=== PATIENT | female | born 1940 | race Caucasian/White ===

== ENCOUNTER 2017-01-23 12:25 | Emergency (ER) | payer OTHER ==
[~2017-01-23] VITALS: Ht 160 cm; Wt 67.1 kg
[~2017-01-23 12:25] MED LIST: AMLODIPINE; APAP500 PO; APAP650 PO; ATIVAN1 MG PO; CARAFATE 1 GM TA1 G1 PO; CENTRUM TABLET1 TAB PO; ENOXAPARIN40 MG/0.1 SUBQ; FLOMAX0.4 MG PO; HYDROCHLOROTHIA25 M1 PO; HYDROCODON-ACE1 EACH PO; HYDROCODONE-APA1 TA1 PO; LIDOCAINE VISC100 M1 PO; MAG-AL PLUS SUS30 ML PO; MOBIC15 MG PO; NORVASC5 MG PO; OMEPRAZOLE20 M2 PO; ONDANSETRON HCL4 M2 PO; PEG 3350 ELEC4000 ML PO; PERCOCET 10-321 EACH PO; SENNA8.6 MG PO; ULTRAM 50MG TAB50 MG PO; VICODIN 5-5001 EACH PO; VITAMIN D 5050000 I1 PO; VOL-NATE TABLE1 EACH PO; VOLTAREN GEL 1100 G1 TOP; ZOCOR; ZOCOR 10 MG TAB10 M1 PO
[2017-01-23] MEDS ORDERED: HYDROCHLOROTH12.5 M1 PO (12:55)
[2017-01-23] MEDS ORDERED: MOBIC15 MG PO (12:56)
[2017-01-23] MEDS ORDERED: DONEPEZIL HCL 55 M1 PO (12:56)
[2017-01-23] MEDS ORDERED: NORVASC5 MG PO (12:56)
[2017-01-23] MEDS ORDERED: OMEPRAZOLE 20 M20 M1 PO (12:56)
[2017-01-23] MEDS ORDERED: CRESTOR10 MG PO (12:57)
[2017-01-23] MEDS ORDERED: VITAMIN D50000 UNIT PO (12:57)
[2017-01-23] MEDS ORDERED: PREDNISONE 20 M20 MG PO (14:32)
[2017-01-23] MEDS ORDERED: NORCO 5-325 TA1 EACH PO (14:38)
[2017-01-23 15:13] VITALS: BP 155/65
== END 2017-01-23 15:13 | disposition home or self-care (01) ==
LOC: ER 12:25
DX: M54.41 Lumbago with sciatica, right side (principal); E78.00 Pure hypercholesterolemia, unspecified; I10 Essential (primary) hypertension; F17.210 Nicotine dependence, cigarettes, uncomplicated; F10.99 Alcohol use, unspecified with unspecified alcohol-induced disorder; Z88.1 Allergy status to other antibiotic agents; Z88.6 Allergy status to analgesic agent; Z88.2 Allergy status to sulfonamides

== ENCOUNTER → 2017-02-21 | Outpatient (CLI) | payer OTHER ==
[~2017-02-21] VITALS: Ht 160 cm; Wt 69.4 kg
[~2017-02-21] MED LIST changes: +CRESTOR10 MG PO; +DONEPEZIL HCL 55 M1 PO; +HYDROCHLOROTH12.5 M1 PO; +NORCO 5-325 TA1 EACH PO; +OMEPRAZOLE 20 M20 M1 PO; +PREDNISONE 20 M20 MG PO; +VITAMIN D50000 UNIT PO
--- NOTE | ~2017-02-21 | HPC ---
[facility] [place] [address] PAIN MANAGEMENT CONSULTATION Name: PAOLASURENDRARG LAND NAZ Room #: REG [facility] Hernan.#: [id number] Admission: 02/21/17 Attend Phys: Antwan Duenas DO Discharge: Date of : 38 Report #: [id number] THIS REPORT FOR: //name// CC: Yobani Duenas The patient is a very pleasant 76-year-old female, seen some 6 years ago in 2011 for a lumbar radiculopathy. The patient was somewhat lost to follow up. She presents to the pain clinic today in consultation at the request of Dr. Hoffman for evaluation of pain, low back, right hip, posterior right leg down to the foot with some paresthesia in the left kaminski as well. The patient had a hip fracture (right) in October of 2015, treated with ORIF. She did walk with a walker for a greater time and then a cane, progressed to steady ambulation. She notes, however, starting in December, she has had some recurrence of pain starting this past December, she has had recurrence of pain in the low back, right lateral leg down to the foot. She describes constant, shooting, cramping, sharp pain, which she rates 9 on a VAS. She states the pain is exacerbated with walking, standing and lying, and "nothing" makes it better. REVIEW OF SYSTEMS: Complete review of systems attached to chart and gone over with the patient. She is . History of hypertension, treated with hydrochlorothiazide and amlodipine. Gastroesophageal reflux for which she takes omeprazole. She does have some early cognitive impairment, does take Donepezil. Dyslipidemia for which she takes rosuvastatin. She has been taking Meloxicam recently. SURGICAL HISTORY: Includes the aforementioned right hip ORIF in October 2015. Carpal tunnel surgeries, vesicocele and rectocele repair in July 2015. She is retired. Pain impact score is fairly high, averaging about 54/70. PHYSICAL EXAMINATION: GENERAL: Reveals a 5 feet 3, 153 pounds female, BMI is 27.1 kilograms per meter squared. VITAL SIGNS: Blood pressure is 150/66, pulse 68, and respirations 16. NEUROLOGIC: Cranial nerves 2-12 are grossly intact. HEENT: Pupils are equal, reactive to light and accommodation. Extraocular muscles are intact. She is generally alert and oriented. NECK: Thyroid is unremarkable. Cervical range of motion is full. MUSCULOSKELETAL: Upper extremity strength is generally preserved. HEART: Regular rhythmical at this time. I detect no murmurs. LUNGS: Clear. ABDOMEN: Shows a modestly endomorphic build. Rises from chair using armrest, does have a markedly antalgic gait. Right hip flexion strength is significantly limited about 2-3/5, as is lower extremity extension strength, left leg is stronger at about 4/5 to objective testing. Patellar reflex is diminished on [address] [address] PAIN MANAGEMENT CONSULTATION Name: GOVIND FITZGERALDPETER CHILDS Room #: REG RENAE Lopez#: [id number] Admission: 02/21/17 Attend Phys: Antwan Duenas DO Discharge: Date of : 38 Report #: [id number] the right, 0-1/4 and 1-2/4 on the left. Achilles reflexes are symmetric. Grossly positive straight leg raise on the right at about 30 degrees. DIAGNOSTIC STUDIES: A CT myelogram from 01/23/2017 notes L4-L5 to facet degenerative changes, left greater than right, DJD both hips is noted, status post ORIF right femur. ASSESSMENT: 1. Symptomatic lumbar radiculopathy. 2. Spinal stenosis. RECOMMENDATIONS: 1. Epidural injection under fluoroscopy today, L4-L5. 2. Follow up in 2 weeks for reevaluation. We will consider PT referral at that time to help with loss of strength. May consider repeat injection if indicated clinically. Thank you for allowing me to participate in this patient's care. I will keep you abreast of her progress. PROCEDURE: Lumbar epidural injection under fluoroscopy. PROCEDURE NOTE: After both written and informed consent to include risk of spinal cord damage, increased pain, weakness and dural puncture, the patient was taken to the fluoroscopy suite, placed in the prone position. After sterile prep and drape, a skin wheal with lidocaine was raised. A 22-gauge epidural Tuohy needle was inserted in the midline at L5-S1 with good loss to resistance. Negative aspiration for cerebrospinal fluid or blood was noted. Then 1 mL of Omnipaque under biplanar fluoroscopy showed good spread within the epidural space. This was followed with 80 mg of triamcinolone plus 1 mL of 1.5% preservative-free Xylocaine, 0.5 mL Xylocaine was then injected to flush the needle; it was removed. The patient was monitored for an appropriate period of time and discharged in good and stable condition. <ELECTRONICALLY SIGNED> By: Antwan Duenas DO 02/25/17 0840 [id number] [id number] Antwan Duenas DO /nt
[2017-02-21 09:01] VITALS: BP 150/66
== END | disposition home or self-care (01) ==
LOC: PAIN 06:27
DX: M54.16 Radiculopathy, lumbar region (principal); M48.06 Spinal stenosis, lumbar region; F17.200 Nicotine dependence, unspecified, uncomplicated

== ENCOUNTER → 2017-03-07 | Outpatient (CLI) | payer OTHER ==
[~2017-03-07] VITALS: Ht 160 cm; Wt 69.9 kg
--- NOTE | ~2017-03-07 | HPC ---
[facility] [place] [address] PAIN MANAGEMENT CONSULTATION Name: RG FITZGERALD Room #: REG RENAE Hernan.#: [id number] Admission: 03/07/17 Attend Phys: Antwan Duenas DO Discharge: Date of : 38 Report #: [id number] THIS REPORT FOR: //name// CC: Yobani Duenas HISTORY OF PRESENT ILLNESS: The patient a very pleasant 76-year-old female, she was last seen in the pain clinic on 02/21/2017. She was seen in consultation at that time, had been prior seen back in 2011. The patient was treated for symptomatic lumbar radiculopathy, component of spinal stenosis. I did an epidural injection at L5-S1. The patient returns to pain clinic today noting dramatic improvement of baseline pain, in fact notes her pain is 1 or 2 on a VAS, occasionally up to 2 with activity. Pain is primarily right lateral calf, although the back, buttock, and leg pain is essentially gone. PHYSICAL EXAMINATION: Shows a 76-year-old female. BMI is 27.3 kilograms per meter squared. Vital signs stable as noted in the EMR. Rises from chair easily. Gait is tandem. Lower extremity strength is preserved. Straight leg raise is negative. Again, some subjective pain in the lateral aspect of the right leg, though no discrete pathology is discernible here. ASSESSMENT: Symptomatic lumbar radiculopathy secondary to spinal stenosis with dramatic improvement following single epidural injection. RECOMMENDATION: No further interventional therapy required at this point. I will be happy to repeat an epidural injection as indicated for radicular pain. Currently, the patient is taking meloxicam 15 mg 1 a day, this is reasonable. We did briefly talk about cardiac risk and daily anti-inflammatory medication use suggesting perhaps she use this on a more nondaily basis, i.e., only if she has significant pain or activity is planned that may increase pain (going to the grocery store or to family events for prolonged period of time). Presently, however, really no interventional therapy is required and I will be happy to see her on an as needed basis. Discharged in good and stable condition after approximately 15 minutes was spent reviewing the patient's anatomy and physical exam, discussing her care with her daughter. <ELECTRONICALLY SIGNED> By: Antwan Duenas DO 03/08/17 0949 1452 1932 Antwan Duenas DO /nt
[2017-03-07 13:28] VITALS: BP 131/64
== END | disposition home or self-care (01) ==
LOC: PAIN 07:09
DX: M48.061 Spinal stenosis, lumbar region without neurogenic claudication (principal); F17.200 Nicotine dependence, unspecified, uncomplicated; Z98.890 Other specified postprocedural states; Z88.0 Allergy status to penicillin; Z88.2 Allergy status to sulfonamides; Z88.6 Allergy status to analgesic agent; Z79.899 Other long term (current) drug therapy

== ENCOUNTER → 2017-10-17 | Outpatient (CLI) | payer OTHER ==
[~2017-10-17] VITALS: Ht 160 cm; Wt 69.4 kg
[~2017-10-17] MED LIST changes: +OXYBUTYNIN 5 MG5 M1 PO
[2017-10-17 13:32] VITALS: BP 137/70
== END ==
LOC: SEN 09:23
DX: M25.561 Pain in right knee (principal); M54.5 Low back pain; M48.061 Spinal stenosis, lumbar region without neurogenic claudication; F03.90 Unspecified dementia, unspecified severity, without behavioral disturbance, psychotic disturbance, mood disturbance, and anxiety; K21.9 Gastro-esophageal reflux disease without esophagitis; H91.92 Unspecified hearing loss, left ear; I10 Essential (primary) hypertension

== ENCOUNTER 2017-11-06 19:39 | Emergency (ER) | payer OTHER ==
[~2017-11-06] VITALS: Ht 160 cm; Wt 70.3 kg
[2017-11-06] MEDS ORDERED: MAGIC MOUTHWASH SWISH&SPIT (20:44)
[2017-11-06 21:00] VITALS: BP 149/64
== END 2017-11-06 21:01 | disposition home or self-care (01) ==
LOC: ER 19:39
DX: B37.9 Candidiasis, unspecified (principal); I10 Essential (primary) hypertension; E78.00 Pure hypercholesterolemia, unspecified; F17.210 Nicotine dependence, cigarettes, uncomplicated; Z88.1 Allergy status to other antibiotic agents; Z88.2 Allergy status to sulfonamides

== ENCOUNTER 2017-11-09 09:31 | Emergency (ER) | payer OTHER ==
[~2017-11-09] VITALS: Ht 160 cm; Wt 70.3 kg
[~2017-11-09 09:31] MED LIST changes: +MAGIC MOUTHWASH SWISH&SPIT
[2017-11-09] MEDS ORDERED: HYDROCODONE-AP1 EAC6 PO (12:16)
[2017-11-09 12:37] VITALS: BP 130/59
== END 2017-11-09 12:39 | disposition home or self-care (01) ==
LOC: ER 09:31
DX: S80.02XA Contusion of left knee, initial encounter (principal); S80.01XA Contusion of right knee, initial encounter; S20.211A Contusion of right front wall of thorax, initial encounter; W10.9XXA Fall (on) (from) unspecified stairs and steps, initial encounter; Y93.89 Activity, other specified; Y92.89 Other specified places as the place of occurrence of the external cause; Y99.8 Other external cause status; E78.00 Pure hypercholesterolemia, unspecified; I10 Essential (primary) hypertension; F17.210 Nicotine dependence, cigarettes, uncomplicated; Z88.1 Allergy status to other antibiotic agents; Z88.2 Allergy status to sulfonamides

== ENCOUNTER → 2017-11-14 | Outpatient (CLI) | payer OTHER ==
[~2017-11-14] MED LIST changes: +HYDROCODONE-AP1 EAC6 PO; +REQUIP 0.25 M0.25 M1
[2017-11-14 15:30] VITALS: BP 116/73
[2017-11-14 16:26] LABS: ABSOLUTE NEUTROPHILS 5.7 thou/uL (1.4-8.2); BASOPHILS 0.7 % (0.0-2.0); HEMATOCRIT 39.3 % (37.0-47.0); HEMOGLOBIN 13.4 gm/dL (12.0-15.0); LYMPHOCYTES 18.4 % (24.0-44.0); MCH 31.7 pg (26.0-34.0); MCV 93.3 fL (80.0-100.0); MONOCYTES 7.5 % (1.0-8.0); PLATELET COUNT 209 thou/uL (150-400); POLYS 72.4 % (36.0-66.0); RBC 4.22 mil/uL (4.20-5.00); RDW 13.5 % (10.5-14.5); WBC 7.9 thou/uL (4.0-11.0)
[2017-11-14 16:27] LABS: URINE BILIRUBIN NEGATIVE (Negative); URINE BLOOD NEGATIVE (Negative); URINE CLARITY CLEAR; URINE COLOR YELLOW; URINE GLUCOSE-RANDOM* NEGATIVE (Negative); URINE KETONES NEGATIVE (Negative); URINE LEUKOCYTES-REFLEX NEGATIVE (Negative); URINE NITRITE-REFLEX NEGATIVE (Negative); URINE PROTEIN (DIPSTICK) NEGATIVE (Negative); URINE UROBILINOGEN 0.2 E.U./dl (0.2-1.0)
[2017-11-14 16:33] LABS: CREATININE 0.9 mg/dL (0.6-1.0)
[2017-11-14 17:04] LABS: FOLIC ACID 14.3 ng/mL (8.6-58.9)
== END ==
LOC: SEN 08:48
PROVIDERS: Nurse Practitioner Family
DX: G25.81 Restless legs syndrome (principal); R41.3 Other amnesia

== ENCOUNTER 2017-11-17 12:28 | Emergency (ER) | payer OTHER ==
[~2017-11-17] VITALS: Ht 160 cm; Wt 69.8 kg
[2017-11-17 12:39] VITALS: BP 139/62
[2017-11-17] MEDS ORDERED: SENNA-DOCUSATE1 EACH PO (13:56)
[2017-11-17] MEDS ORDERED: NORCO 5-325 TA1 EACH PO (13:56)
== END 2017-11-17 14:10 | disposition home or self-care (01) ==
LOC: ER 12:28
DX: S22.41XD Multiple fractures of ribs, right side, subsequent encounter for fracture with routine healing (principal); X58.XXXD Exposure to other specified factors, subsequent encounter; I10 Essential (primary) hypertension; E78.00 Pure hypercholesterolemia, unspecified; F17.210 Nicotine dependence, cigarettes, uncomplicated; Z88.1 Allergy status to other antibiotic agents; Z88.2 Allergy status to sulfonamides

== ENCOUNTER → 2018-01-16 | Outpatient (CLI) | payer OTHER ==
[~2018-01-16] VITALS: Ht 160 cm; Wt 69.4 kg
[~2018-01-16] MED LIST changes: +SENNA-DOCUSATE1 EACH PO
[2018-01-16 13:30] VITALS: BP 127/59
[2018-01-16 15:27] LABS: CREATININE 0.9 mg/dL (0.6-1.0); POTASSIUM 3.7 mmol/L (3.5-5.1)
== END ==
LOC: SEN 09:02
PROVIDERS: Emergency Medicine
DX: Z13.21 Encounter for screening for nutritional disorder (principal); E55.9 Vitamin D deficiency, unspecified; E11.9 Type 2 diabetes mellitus without complications; R07.89 Other chest pain; I10 Essential (primary) hypertension; E78.00 Pure hypercholesterolemia, unspecified; E78.5 Hyperlipidemia, unspecified; M19.90 Unspecified osteoarthritis, unspecified site; Z79.899 Other long term (current) drug therapy

== ENCOUNTER → 2018-03-11 | Outpatient (CLI) | payer OTHER ==
[~2018-03-11] VITALS: Ht 160 cm; Wt 68.3 kg
--- NOTE | ~2018-03-11 | HPC ---
[facility] [address] [place] [address] PAIN MANAGEMENT CONSULTATION Name: RG FITZGERALD [facility] [id number] Admission: 03/11/18 Attend Phys: Severo Duenas DO Discharge: Date of : 38 Report #: [id number] THIS REPORT FOR: //name// CC: Yobani Raim Akkulugari DATE OF SERVICE: 03/11/2018 CHIEF COMPLAINT: Low back pain, bilateral lower extremity pain and paresthesias. HISTORY OF PRESENT ILLNESS: As you know, the patient is a 77-year-old female who complains of chronic low back pain, bilateral lower extremity pain with paresthesias. She describes the pain as aching and cramping, exacerbated with sitting, standing, walking, getting in and out of bed, alleviated with repositioning, heat and cold compresses, medication management and epidural injections. The patient returns today in followup visit requesting to undergo epidural injection under fluoroscopic guidance. She reported good efficacy with the previous injection provided by my partner, Dr. Antwan Duenas, with reportedly 50% improvement in overall pain. She returns today in followup visit to undergo next in the series of epidural injections. The patient denies injury or trauma or any changes in medical history since our last visit. ALLERGIES: ERYTHROMYCIN, SULFA, AND NAPROXEN. CURRENT MEDICATIONS: Ropinirole, oxybutynin, cholecalciferol, lovastatin, omeprazole, benazepril, meloxicam, amlodipine and hydrochlorothiazide. SOCIAL HISTORY: The patient is a half pack a day smoker x 50 years. Denies alcohol, IV or illicit drug use. She is retired, unaccompanied today. IMAGING: No new imaging available. PQRS: The patient has osteoarthritis of the lower back, bilateral hips, no rheumatoid arthritis. She places current pain score 5/10. She is a fall risk, but has not had a fall in the last 3 months. She is not on blood thinners. She is treated for hypertension. She is not on a long-term opioid. She has a low opioid addiction potential. Her pain impact score indicates a [id number] 54/70. PHYSICAL EXAMINATION: VITAL SIGNS: Blood pressure 136/64, pulse 73, respiratory rate 16 and unlabored. The patient is 100% on room air. Height 5 feet 3 inch tall, weight 150.6 pounds, BMI calculated 26.7. [place] [address] PAIN MANAGEMENT CONSULTATION Name: RG FITZGERALD Room #: REG [facility]#: [id number] Admission: 03/11/18 Attend Phys: Severo Duenas DO Discharge: Date of : 38 Report #: [id number] GENERAL: Well-developed, well-nourished, well-hydrated 77-year-old female appearing stated age, placing current pain score 5/10. HEENT: Normocephalic, atraumatic. Pupils equal, round, reactive to light. EXTREMITIES: Show no clubbing, no cyanosis, no edema. MUSCULOSKELETAL: Seated straight leg raising negative. Supine straight leg raising positive. Dallas's test negative. Modified Gaenslen's positive for axial low back pain. Gait is extremely antalgic. Ankle clonus is negative. Babinski is negative. ASSESSMENT: 1. Symptomatic lumbar radiculopathy. 2. Spinal stenosis of the lumbar spine. 3. Displacement of lumbar intervertebral disk with radiculopathy. 4. Lumbosacral spondylosis with radiculopathy. 5. Lumbar degeneration. 6. Chronic intractable pain. PLAN: 1. The patient has returned today in followup visit requesting to undergo a lumbar epidural injection under fluoroscopic guidance. The patient reports greater than 50% improvement in overall pain with previous epidural injection. She returns today in followup visit, denying any new injury, new trauma or any changes in medical history since our last visit. She has requested this epidural injection in hopes of improving low back pain, bilateral lower extremity pain. The patient has been advised risks and benefits, states understood and wished to proceed. 2. No medication changes made at today's visit. The patient will continue current medical therapy as previously prescribed. 3. We will see the patient back in followup visit on an as needed basis for possible next in the series of epidural injections. PROCEDURE NOTE: DESCRIPTION OF PROCEDURE: L5-S1 interlaminar epidural steroid injection under fluoroscopic guidance. After obtaining written consent, the patient was taken back to fluoroscopy suite, placed in prone position with pillow under abdomen to decrease lumbar lordosis. Skin overlying lumbosacral area then prepped and draped in aseptic fashion. Lumbar intervertebral spaces were identified by AP fluoroscopy. Skin and subcutaneous tissue overlying target site of injection anesthetized with 3 mL of 1% lidocaine. A 20-gauge 3-1/2 inch Tuohy needle advanced under fluoroscopic guidance towards the epidural space using a midline approach. Epidural space identified using loss of resistance to air technique. After negative aspiration for heme or [facility] [address] [place] [address] PAIN MANAGEMENT CONSULTATION Name: RG FITZGERALD Room #: REG RENAE Lopez#: [id number] Admission: 03/11/18 Attend Phys: Severo Duenas DO Discharge: Date of : 38 Report #: [id number] cerebrospinal fluid, 1 mL of Omnipaque injected. A lumbar epidurogram confirmed using both AP and lateral fluoroscopy. After negative aspiration for heme or cerebrospinal fluid, 5 mL of a solution containing 2 mL 40 mg per mL, 80 mg total triamcinolone, 3 mL lidocaine 1% injected slowly. Needle retracted snf, flushed with 1 mL of 1% lidocaine and removed. Sterile bandage placed over injection site. No new motor deficits present in lower extremity following procedure. The patient tolerated procedure well, carefully escorted to recovery room in stable condition. No apparent complications. After meeting discharge criteria, the patient discharged home. <ELECTRONICALLY SIGNED> By: Severo Duenas DO 03/12/18 1059 1415 [id number] Severo Duenas DO /nt
[2018-03-11 09:56] VITALS: BP 136/64
== END | disposition home or self-care (01) ==
LOC: PAIN 06:53
DX: M51.16 Intervertebral disc disorders with radiculopathy, lumbar region (principal); M48.061 Spinal stenosis, lumbar region without neurogenic claudication; M47.27 Other spondylosis with radiculopathy, lumbosacral region; G89.29 Other chronic pain; M16.0 Bilateral primary osteoarthritis of hip; I10 Essential (primary) hypertension; F17.210 Nicotine dependence, cigarettes, uncomplicated; Z88.8 Allergy status to other drugs, medicaments and biological substances; Z98.890 Other specified postprocedural states; Z88.2 Allergy status to sulfonamides; Z79.899 Other long term (current) drug therapy

== ENCOUNTER → 2018-03-13 | Outpatient (CLI) | payer OTHER ==
[2018-03-13 14:48] VITALS: BP 139/60
== END ==
LOC: SEN 08:19
DX: Z09 Encounter for follow-up examination after completed treatment for conditions other than malignant neoplasm (principal); R76.0 Raised antibody titer; I10 Essential (primary) hypertension; E78.5 Hyperlipidemia, unspecified

== ENCOUNTER → 2018-03-14 | Outpatient (CLI) | payer OTHER | LOC: MRI 10:14 | DX: I67.82 Cerebral ischemia (principal); G45.9 Transient cerebral ischemic attack, unspecified; M25.50 Pain in unspecified joint; R26.9 Unspecified abnormalities of gait and mobility; R68.89 Other general symptoms and signs; F10.21 Alcohol dependence, in remission; Z87.81 Personal history of (healed) traumatic fracture ==

== ENCOUNTER 2018-03-21 11:59 | Emergency (ER) | payer OTHER ==
[~2018-03-21] VITALS: Ht 157.5 cm; Wt 68.0 kg
[2018-03-21] MEDS ORDERED: TRAMADOL 50 MG50 MG PO (14:06)
[2018-03-21 14:30] VITALS: BP 134/50
== END 2018-03-21 14:25 | disposition home or self-care (01) ==
LOC: ER 11:59
DX: S83.92XA Sprain of unspecified site of left knee, initial encounter (principal); S13.4XXA Sprain of ligaments of cervical spine, initial encounter; S39.012A Strain of muscle, fascia and tendon of lower back, initial encounter; E78.00 Pure hypercholesterolemia, unspecified; I10 Essential (primary) hypertension; G56.00 Carpal tunnel syndrome, unspecified upper limb; G89.29 Other chronic pain; F17.210 Nicotine dependence, cigarettes, uncomplicated; Z88.1 Allergy status to other antibiotic agents; Z88.2 Allergy status to sulfonamides; Z88.8 Allergy status to other drugs, medicaments and biological substances; W18.09XA Striking against other object with subsequent fall, initial encounter; Y93.89 Activity, other specified; Y92.89 Other specified places as the place of occurrence of the external cause; Y99.8 Other external cause status

== ENCOUNTER → 2018-03-27 | Outpatient (CLI) | payer OTHER ==
[~2018-03-27] MED LIST changes: +TRAMADOL 50 MG50 MG PO
[2018-03-27 15:38] VITALS: BP 130/63
[2018-03-27 16:27] LABS: ABSOLUTE NEUTROPHILS 5.2 thou/uL (1.4-8.2); BASOPHILS 0.8 % (0.0-2.0); EOSINOPHILS 1.1 % (0.0-3.0); HEMATOCRIT 38.7 % (37.0-47.0); HEMOGLOBIN 13.3 gm/dL (12.0-15.0); LYMPHOCYTES 17.7 % (24.0-44.0); MCH 32.2 pg (26.0-34.0); MCHC 34.4 g/dL (28.0-37.0); MCV 93.5 fL (80.0-100.0); MONOCYTES 6.9 % (1.0-8.0); PLATELET COUNT 188 thou/uL (150-400); POLYS 73.5 % (36.0-66.0); RBC 4.14 mil/uL (4.20-5.00); RDW 12.7 % (10.5-14.5); WBC 7.1 thou/uL (4.0-11.0)
[2018-03-27 16:33] LABS: CALCIUM 9.4 mg/dL (8.5-10.1); CREATININE 0.8 mg/dL (0.6-1.0); POTASSIUM 3.6 mmol/L (3.5-5.1)
== END ==
LOC: SEN 09:45
PROVIDERS: Nurse Practitioner Family
DX: I10 Essential (primary) hypertension (principal); E78.00 Pure hypercholesterolemia, unspecified; Z91.81 History of falling

== ENCOUNTER → 2018-04-10 | Outpatient (CLI) | payer OTHER | LOC: SEN 12:23 | DX: Z09 Encounter for follow-up examination after completed treatment for conditions other than malignant neoplasm (principal); I10 Essential (primary) hypertension; E78.5 Hyperlipidemia, unspecified; K21.9 Gastro-esophageal reflux disease without esophagitis; R53.1 Weakness; E55.9 Vitamin D deficiency, unspecified; R53.83 Other fatigue; M54.5 Low back pain; G89.29 Other chronic pain; G25.81 Restless legs syndrome; N32.81 Overactive bladder; F03.90 Unspecified dementia, unspecified severity, without behavioral disturbance, psychotic disturbance, mood disturbance, and anxiety; Z79.899 Other long term (current) drug therapy ==

== ENCOUNTER → 2018-05-01 | Outpatient (CLI) | payer OTHER | LOC: SEN 15:27 | DX: Z09 Encounter for follow-up examination after completed treatment for conditions other than malignant neoplasm (principal); I10 Essential (primary) hypertension; R42 Dizziness and giddiness; R53.83 Other fatigue; R53.1 Weakness; G89.29 Other chronic pain ==

== ENCOUNTER → 2018-08-01 | Outpatient (CLI) | payer OTHER ==
[2018-08-01 09:35] LABS: ABSOLUTE NEUTROPHILS 4.6 thou/uL (1.4-8.2); BASOPHILS 0.8 % (0.0-2.0); HEMATOCRIT 40.8 % (37.0-47.0); HEMOGLOBIN 13.9 gm/dL (12.0-15.0); LYMPHOCYTES 22.3 % (24.0-44.0); MCH 31.1 pg (26.0-34.0); MCV 91.4 fL (80.0-100.0); MONOCYTES 7.5 % (1.0-8.0); PLATELET COUNT 186 thou/uL (150-400); POLYS 67.4 % (36.0-66.0); RBC 4.46 mil/uL (4.20-5.00); RDW 12.9 % (10.5-14.5); WBC 6.9 thou/uL (4.0-11.0)
[2018-08-01 09:51] LABS: ALBUMIN 3.9 g/dL (3.4-5.0); ANION GAP 9 mmol/L (7-16); BUN 11 mg/dL (7-18); CALCIUM 9.4 mg/dL (8.5-10.1); CHLORIDE 97 mmol/L (98-107); CHOLESTEROL 284 mg/dL (<200); CO2 30 mmol/L (21-32); CREATININE 0.8 mg/dL (0.6-1.0); GLUCOSE 107 mg/dL (74-106); HDL CHOLESTEROL 64 mg/dL (>40); LDL CHOLESTEROL 200 mg/dL (<100); POTASSIUM 3.5 mmol/L (3.5-5.1); SGOT 16 U/L (15-37); SGPT 18 U/L (30-65); SODIUM 136 mmol/L (136-145); TC:HDL 4.4 Ratio (Not establshd); TOTAL BILIRUBIN 0.7 mg/dL (<0.1-1.0); TOTAL PROTEIN 7.6 g/dL (6.4-8.2); TRIGLYCERIDE 102 mg/dL (<150); VLDL 20 mg/dL (<40)
== END ==
LOC: SEN 08:33
PROVIDERS: Nurse Practitioner Family
DX: Z51.81 Encounter for therapeutic drug level monitoring (principal); Z13.21 Encounter for screening for nutritional disorder; I10 Essential (primary) hypertension; Z82.49 Family history of ischemic heart disease and other diseases of the circulatory system

== ENCOUNTER → 2018-08-14 | Outpatient (CLI) | payer OTHER ==
[2018-08-14 16:31] LABS: ABSOLUTE NEUTROPHILS 5.4 thou/uL (1.4-8.2); BASOPHILS 0.8 % (0.0-2.0); EOSINOPHILS 1.3 % (0.0-3.0); HEMOGLOBIN 13.5 gm/dL (12.0-15.0); LYMPHOCYTES 19.8 % (24.0-44.0); MCH 31.1 pg (26.0-34.0); MCHC 33.8 g/dL (28.0-37.0); MONOCYTES 7.1 % (1.0-8.0); PLATELET COUNT 200 thou/uL (150-400); RBC 4.35 mil/uL (4.20-5.00); RDW 13.2 % (10.5-14.5); WBC 7.6 thou/uL (4.0-11.0)
[2018-08-14 16:40] LABS: ALBUMIN 3.7 g/dL (3.4-5.0); CALCIUM 9.2 mg/dL (8.5-10.1); CREATININE 0.9 mg/dL (0.6-1.0); POTASSIUM 3.9 mmol/L (3.5-5.1); TOTAL BILIRUBIN 0.5 mg/dL (<0.1-1.0); TOTAL PROTEIN 7.3 g/dL (6.4-8.2)
== END ==
LOC: SEN 10:17
PROVIDERS: Nurse Practitioner Family
DX: Z09 Encounter for follow-up examination after completed treatment for conditions other than malignant neoplasm (principal); I10 Essential (primary) hypertension; E78.00 Pure hypercholesterolemia, unspecified; E78.5 Hyperlipidemia, unspecified; Z79.899 Other long term (current) drug therapy; Z87.891 Personal history of nicotine dependence

== ENCOUNTER 2018-08-18 14:21 | Inpatient (IN) | payer OTHER ==
[~2018-08-18] VITALS: Ht 160 cm; Wt 70.3 kg
[2018-08-18 14:27] VITALS: BP 111/59
[2018-08-18 15:02] LABS: ABSOLUTE NEUTROPHILS 6.6 thou/uL (1.4-8.2); BASOPHILS 0.2 % (0.0-2.0); HEMATOCRIT 40.5 % (37.0-47.0); HEMOGLOBIN 13.5 gm/dL (12.0-15.0); LYMPHOCYTES 5.3 % (24.0-44.0); MCH 30.8 pg (26.0-34.0); MCHC 33.5 g/dL (28.0-37.0); MCV 92.2 fL (80.0-100.0); MONOCYTES 5.1 % (1.0-8.0); PLATELET COUNT 183 thou/uL (150-400); POLYS 89.4 % (36.0-66.0); RBC 4.39 mil/uL (4.20-5.00); RDW 12.8 % (10.5-14.5); WBC 7.3 thou/uL (4.0-11.0)
[2018-08-18 15:07] LABS: ANION GAP 7 mmol/L (7-16); BUN 10 mg/dL (7-18); CALCIUM 9.2 mg/dL (8.5-10.1); CHLORIDE 95 mmol/L (98-107); CO2 31 mmol/L (21-32); CREATININE 0.9 mg/dL (0.6-1.0); GLUCOSE 123 mg/dL (74-106); POTASSIUM 3.3 mmol/L (3.5-5.1); SODIUM 133 mmol/L (136-145)
[2018-08-18 15:15] LABS: ALBUMIN 3.7 g/dL (3.4-5.0); SGOT 21 U/L (15-37); SGPT 14 U/L (30-65); TOTAL PROTEIN 7.1 g/dL (6.4-8.2); TROPONIN-I <0.06 ng/mL (<0.06)
[2018-08-18 15:40] LABS: URINE BILIRUBIN NEGATIVE (Negative); URINE BLOOD 1+ (Negative); URINE CLARITY SL CLOUDY; URINE COLOR YELLOW; URINE GLUCOSE-RANDOM* NEGATIVE (Negative); URINE KETONES NEGATIVE (Negative); URINE LEUKOCYTES-REFLEX 3+ (Negative); URINE NITRITE-REFLEX POSITIVE (Negative); URINE PROTEIN (DIPSTICK) 1+ (Negative); URINE SPECIFIC GRAVITY 1.015 (1.005-1.035)
[2018-08-18 15:47] LABS: BACTERIA-REFLEX >30 Many /HPF (None Seen); CASTS None Seen /LPF (None Seen); CRYSTALS None Seen /LPF (None Seen); SQUAMOUS 0-3 Few /LPF (0-3); URINE RBC 0-2 Rare /HPF (0-2); URINE WBC-REFLEX >25 Many /HPF (0-5)
[2018-08-18 16:54] VITALS: BP 101/52
[2018-08-18 17:06] VITALS: BP 107/43
[2018-08-18 17:55] VITALS: BP 107/41
--- NOTE | 2018-08-18 18:37 | NUR ---
RECEIVED PT APPROX 1715. A/O. ADMISSION ASSESMENT COMPLETED. ASSISTED X2 TO BEDSIDE COMMODE. POOR APPETITE. PT RESTING IN BED. DTR AT BEDSIDE. DTR TO BRING PT'S GLASSES/DENTURES/CLOTHES. WILL CONT. TO MONITOR.
[2018-08-18 19:25] VITALS: BP 113/44
--- NOTE | 2018-08-18 23:58 | EKG ---
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: as : 1940 Requested By: Jennifer Diane Order Number: [id number] MD: Dom Rubin Measurements Intervals [place] Rate: 74 P: 46 AK: 175 QRS: -25 QRSD: 96 T: 18 QT: 414 QTc: 460 Interpretive Statements Sinus rhythm left axis deviation non specific st/t changes Compared to ECG 10/29/2015 06:02:09 Ectopic atrial rhythm no longer present Electronically Signed On 08-18-2018 23:58:21 CDT by Dom Rubin [email or web address] ��������������������������������������������� <ELECTRONICALLY SIGNED> ���������������������������������������� By: Dom Rubin MD ��������������������������������������������� 08/18/18 2358 1500 1500 Dom Rubin MD /EPI
[2018-08-19 04:30] VITALS: BP 133/73
--- NOTE | 2018-08-19 04:41 | NUR ---
PATIENT ALERT AND ORIENTED X4. C/O PAIN X1, TRAMADOL GIVEN. DAUGHTER BROUGHT IN SOME BELONGINGS FOR PATIENT. CHARTED. SLEPT MOST OF NIGHT.
[2018-08-19 05:19] VITALS: BP 1116/66
[2018-08-19 06:33] LABS: HEMATOCRIT 35.4 % (37.0-47.0); HEMOGLOBIN 11.9 gm/dL (12.0-15.0); MCH 31.1 pg (26.0-34.0); MCHC 33.5 g/dL (28.0-37.0); MCV 92.7 fL (80.0-100.0); RBC 3.81 mil/uL (4.20-5.00); RDW 12.9 % (10.5-14.5); WBC 4.6 thou/uL (4.0-11.0)
[2018-08-19 06:45] LABS: CALCIUM 8.6 mg/dL (8.5-10.1); CREATININE 0.8 mg/dL (0.6-1.0)
[2018-08-19 06:49] LABS: POTASSIUM 2.9 mmol/L (3.5-5.1)
[2018-08-19 07:30] VITALS: BP 113/44
--- NOTE | 2018-08-19 08:05 | NUR ---
ASSUMED CARE OF PT AT 0700. ASSESSMENT COMPLETED. A&O,X4. CL K+ 2.9, NEW POTASSIUM ORDERS GIVEN ORDERED. C/O LEFT RIB PAIN, WILL NOTIFY PHYSICIAN. ROOM AIR, NO SOA. NO OTHER CONCERNS AT THIS TIME. WILL CONTINUE TO MONITOR.
--- NOTE | 2018-08-19 13:01 | NUR ---
INITIAL ASSESSMENT: Pt evaluated for d/c planning needs. Reviewed chart and spoke with nurse and pt. Pt is alert and oriented. Pt lives in her own home and daughter lives with her. Pt has walker and cane at home, and was on service with [employer] [facility] in the past. Spoke with dtr. Dtr is hopeful that pt will be able to return home on d/c from hospital. Pt was at SNF in the past, and it was not a good experience. Dtr is scheduled to have open heart surgery on September 05 and is concerned about someone checking on pt. Pt's son works for the police department and is not available to care for pt. Discussed SNF and dtr is not interested. Pt has family at [place] and dtr will look into pt staying with her during daughter's recuperation. Pt and dtr plan on pt returning home with home health if needed. Will remain available to assist as needed.
[2018-08-19 15:35] VITALS: BP 100/36
[2018-08-19 17:17] LABS: CALCIUM 8.6 mg/dL (8.5-10.1); CREATININE 0.9 mg/dL (0.6-1.0); MAGNESIUM 2.2 mg/dL (1.8-2.4)
[2018-08-19 17:18] LABS: POTASSIUM 4.3 mmol/L (3.5-5.1)
--- NOTE | 2018-08-19 19:26 | NUR ---
ELECTROLYTE PROTOCOL IN PLACE. K+ WNL. DR. COBURN D/C TELEMETRY ORDERS. PT IN STABLE CONDITION. X1 ASSIST STANDBY TO YUSEF.
[2018-08-19 19:47] VITALS: BP 103/29
--- NOTE | 2018-08-20 04:30 | NUR ---
ASSUMED CARE AT 1900, ASSESSMENT COMPLETED. PT DENIED SOB OR NAUSEA. REPORTS OCCASIONAL PAIN IN LEFT LOWER RIBS, NEAR MID-ABD, CURRENTLY STATES SHE DOESNT HURT. REPORTS MULTIPLE FALLS AT HOME, FALL PRECAUTIONS IN PLACE. CALLS APPROPRIATELY FOR ASSISTANCE. TOOK PILLS WHOLE WITHOUT ISSUE. NO OTHER CONCERNS, WILL CONTINUE TO MONITOR.
[2018-08-20 04:59] VITALS: BP 117/40
[2018-08-20 06:41] LABS: HEMATOCRIT 34.9 % (37.0-47.0); HEMOGLOBIN 11.9 gm/dL (12.0-15.0); MCH 31.5 pg (26.0-34.0); MCHC 34.2 g/dL (28.0-37.0); MCV 92.1 fL (80.0-100.0); RBC 3.79 mil/uL (4.20-5.00); RDW 13.2 % (10.5-14.5); WBC 3.7 thou/uL (4.0-11.0)
[2018-08-20 07:02] LABS: CALCIUM 8.5 mg/dL (8.5-10.1); CREATININE 0.8 mg/dL (0.6-1.0)
[2018-08-20 07:30] VITALS: BP 119/56
[2018-08-20] MEDS ORDERED: MOBIC7.5 M1 PO (12:36)
[2018-08-20] MEDS ORDERED: ACETAMINOPHEN325 M1 PO (12:36)
[2018-08-20] MEDS ORDERED: OXYBUTYNIN 5 MG5 M1 PO (12:36)
[2018-08-20] MEDS ORDERED: CEFUROXIME250 MG PO (12:36)
[2018-08-20 14:13] VITALS: BP 119/56
--- NOTE | 2018-08-20 14:19 | NUR ---
ASSUMED CARE AT 0700, SHIFT ASSESSMENT DONE, MEDS GIVEN, VSS. DENIES ANY PAIN, NAUSEA, VOMITING. WORKS WITH PHYSICAL THERAPHY, SIITING IN THE CHAIR THIS AM. DISCHARGE ORDERS RECEIVED. WILL CONTINUE TO ASSESS AND ASSIST WITH ADLs NEEDED.
[2018-08-20 14:45] VITALS: BP 119/56
--- NOTE | 2018-08-20 16:54 | NUR ---
PT. DISCHARGING TODAY TO HOME WITH [facility]IRID[facility] SCHAEFFER FAXED DC ORDERS/SUMMARY SPOKE WITH BAILEY IN ADM. SHE RECEIVED DC ORDERS AND WILL NOTIFY PT. OF TIME OF VISITS.
== END 2018-08-20 15:51 | disposition home health service (06) | DRG 689 ==
LOC: ER 14:21 → 4E 16:06 → EROBS 16:06 → 4E 16:06 → ENTRNSPT 08-20 15:27 → EDTRNSPTSTS 08-20 15:29 → 4E 08-20 15:51
PROVIDERS: Student in an Organized Health Care Education/Training Program; ADMIT Internal Medicine
DX: N39.0 Urinary tract infection, site not specified (principal); G92 Toxic encephalopathy; I10 Essential (primary) hypertension; E83.42 Hypomagnesemia; E53.8 Deficiency of other specified B group vitamins; M19.90 Unspecified osteoarthritis, unspecified site; E78.00 Pure hypercholesterolemia, unspecified; E87.6 Hypokalemia; F17.210 Nicotine dependence, cigarettes, uncomplicated; G25.81 Restless legs syndrome; F03.90 Unspecified dementia, unspecified severity, without behavioral disturbance, psychotic disturbance, mood disturbance, and anxiety; K21.9 Gastro-esophageal reflux disease without esophagitis; N32.81 Overactive bladder; Z88.1 Allergy status to other antibiotic agents; Z88.2 Allergy status to sulfonamides; Z88.8 Allergy status to other drugs, medicaments and biological substances; Z79.899 Other long term (current) drug therapy
CPT/HCPCS: 10084; 10183

== ENCOUNTER 2018-09-19 22:51 | Emergency (ER) | payer OTHER ==
[~2018-09-19] VITALS: Ht 160 cm; Wt 68.0 kg
[~2018-09-19 22:51] MED LIST changes: +ACETAMINOPHEN325 M1 PO; +CEFUROXIME250 MG PO; +MOBIC7.5 M1 PO
[2018-09-20] MEDS ORDERED: SERTRALINE HCL50 MG PO (00:04)
[2018-09-20] MEDS ORDERED: OXYBUTYNIN 5 MG5 M2 PO (00:05)
[2018-09-20] MEDS ORDERED: CRESTOR5 MG PO (00:06)
[2018-09-20] MEDS ORDERED: MOBIC15 MG PO (00:07)
[2018-09-20 01:29] VITALS: BP 138/53
== END 2018-09-20 01:35 | disposition home or self-care (01) ==
LOC: ER 22:51
DX: S01.01XA Laceration without foreign body of scalp, initial encounter (principal); E78.00 Pure hypercholesterolemia, unspecified; I10 Essential (primary) hypertension; F17.210 Nicotine dependence, cigarettes, uncomplicated; Z88.1 Allergy status to other antibiotic agents; Z88.2 Allergy status to sulfonamides; Z88.8 Allergy status to other drugs, medicaments and biological substances; W01.0XXA Fall on same level from slipping, tripping and stumbling without subsequent striking against object, initial encounter; Y93.89 Activity, other specified; Y92.89 Other specified places as the place of occurrence of the external cause; Y99.8 Other external cause status

== ENCOUNTER 2018-10-01 12:56 | Emergency (ER) | payer OTHER ==
[~2018-10-01] VITALS: Ht 167.6 cm; Wt 59.9 kg
[~2018-10-01 12:56] MED LIST changes: +CRESTOR5 MG PO; +OXYBUTYNIN 5 MG5 M2 PO; +SERTRALINE HCL50 MG PO
== END 2018-10-01 13:33 | disposition home or self-care (01) ==
LOC: ER 12:56
DX: S01.01XD Laceration without foreign body of scalp, subsequent encounter (principal); E78.00 Pure hypercholesterolemia, unspecified; I10 Essential (primary) hypertension; F17.210 Nicotine dependence, cigarettes, uncomplicated; Z88.1 Allergy status to other antibiotic agents; Z88.2 Allergy status to sulfonamides; W19.XXXD Unspecified fall, subsequent encounter

== ENCOUNTER 2018-12-15 15:57 | Emergency (ER) | payer OTHER ==
[~2018-12-15] VITALS: Ht 160 cm; Wt 69.4 kg
[2018-12-15 18:10] LABS: ABSOLUTE NEUTROPHILS 3.5 thou/uL (1.4-8.2); BASOPHILS 1.4 % (0.0-2.0); HEMATOCRIT 37.4 % (37.0-47.0); HEMOGLOBIN 12.5 gm/dL (12.0-15.0); LYMPHOCYTES 24.6 % (24.0-44.0); MCH 31.1 pg (26.0-34.0); MCHC 33.5 g/dL (28.0-37.0); MCV 92.9 fL (80.0-100.0); MONOCYTES 8.5 % (1.0-8.0); PLATELET COUNT 173 thou/uL (150-400); POLYS 62.5 % (36.0-66.0); RBC 4.03 mil/uL (4.20-5.00); RDW 13.5 % (10.5-14.5); WBC 5.7 thou/uL (4.0-11.0)
[2018-12-15 18:21] LABS: ANION GAP 6 mmol/L (7-16); BUN 13 mg/dL (7-18); CALCIUM 9.2 mg/dL (8.5-10.1); CHLORIDE 101 mmol/L (98-107); CO2 31 mmol/L (21-32); CREATININE 0.9 mg/dL (0.6-1.0); GLUCOSE 128 mg/dL (74-106); POTASSIUM 3.4 mmol/L (3.5-5.1); SODIUM 138 mmol/L (136-145)
[2018-12-15 18:31] LABS: ALBUMIN 3.5 g/dL (3.4-5.0); MAGNESIUM 2.1 mg/dL (1.8-2.4); SGOT 24 U/L (15-37); SGPT 18 U/L (30-65); TOTAL BILIRUBIN 0.5 mg/dL (<0.1-1.0); TOTAL PROTEIN 6.8 g/dL (6.4-8.2); TROPONIN-I <0.06 ng/mL (<0.06)
[2018-12-15] MEDS ORDERED: KLOR-CON 1010 MEQ PO (20:51)
[2018-12-15] MEDS ORDERED: NORCO 5-325 TA1 EAC1 PO (20:51)
[2018-12-15] MEDS ORDERED: MEDROLDOSEPACK PO (20:51)
[2018-12-15] MEDS ORDERED: LASIX 40 MG TAB40 M2 PO (20:51)
[2018-12-15] MEDS ORDERED: SENNA-DOCUSATE1 EAC1 PO (20:51)
[2018-12-15 21:51] VITALS: BP 119/58
--- NOTE | 2018-12-17 07:44 | EKG ---
[place] [address] [facility] [email or web address] [address] ELECTROCARDIOGRAM REPORT Name: RG FITZGERALD Room #: DEP [facility]#: [id number] ������������������ Admission: 12/15/18 ������������������ Attend Phys: Discharge: 12/15/18 ������������������ Date of : 38 Report #: [id number] ����������������������������������������������������������������� [id number] THIS REPORT FOR: //name// [facility] ED Test Date: 2018-12-15 Test Time: 18:04:23 Pat Name: RG FITZGERALD Department: Room: Gender: F [employer] Room Attendant: DEON : 1940 Requested By: Henry Sargent Order Number: [id number] MD: Todd Pettit Measurements Intervals [place] Rate: 68 P: 74 [place]: 164 QRS: -9 QRSD: 99 T: 22 QT: 416 QTc: 443 Interpretive Statements Sinus rhythm Anterior infarct, old Compared to ECG 08/18/2018 15:00:56 No significant change was found Electronically Signed On 12-17-2018 7:44:14 CDT by Todd Pettit [email or web address] ��������������������������������������������� <ELECTRONICALLY SIGNED> ���������������������������������������� By: Todd Pettit MD, [facility] ��������������������������������������������� 12/17/18 0744 03 03 Todd Pettit MD, [facility] /EPI
== END 2018-12-15 21:52 | disposition home or self-care (01) ==
LOC: ER 15:57
PROVIDERS: Emergency Medicine
DX: R60.0 Localized edema (principal); M54.5 Low back pain; G89.29 Other chronic pain; I10 Essential (primary) hypertension; F17.210 Nicotine dependence, cigarettes, uncomplicated; E78.00 Pure hypercholesterolemia, unspecified; Z88.1 Allergy status to other antibiotic agents; Z88.6 Allergy status to analgesic agent; Z88.2 Allergy status to sulfonamides

== ENCOUNTER → 2018-12-17 | Outpatient (CLI) | payer OTHER ==
[~2018-12-17] VITALS: Ht 160 cm; Wt 71.7 kg
[~2018-12-17] MED LIST changes: +KLOR-CON 1010 MEQ PO; +LASIX 40 MG TAB40 M2 PO; +MEDROLDOSEPACK PO; +NORCO 5-325 TA1 EAC1 PO; +SENNA-DOCUSATE1 EAC1 PO
--- NOTE | ~2018-12-17 | HPC ---
[facility] [address] [place] [address] PAIN MANAGEMENT CONSULTATION Name: RG FITZGERALD Room #: REG [facility].#: [id number] Admission: 12/17/18 ������������������ Attend Phys: Giuliano Duenas DO Discharge: ������������������ Date of : 36 Report #: [id number] THIS REPORT FOR: //name// CC: GIULIANO Duenas Floyd Akkulugari DATE OF SERVICE: 12/17/2018 REFERRING PHYSICIAN: Dr. Giuliano Lala. CHIEF COMPLAINT: Low back pain, bilateral lower extremity pain and paresthesias. HISTORY OF PRESENT ILLNESS: As you know, the patient is an 78-year-old female who returns today in followup visit for chronic low back pain, bilateral lower extremity pain with paresthesias. She describes the pain again as aching, cramping, numbness and tingling. She reports a fall 2 days ago where she states she was "just unable to lift her legs." She did not seek evaluation after this fall. She indicates today pain is sharp and aching. Describes pain as exacerbated with standing, walking, getting out of bed; improves with sitting, heat and cold compresses, epidural injections and medication management. Previous epidural injection gave the patient improvement in symptoms of greater than 50%. Unfortunately, her symptoms have begun to return. She returns today to undergo next in the series of epidural injections in hopes of improving pain. ALLERGIES: ERYTHROMYCIN, SULFA AND NAPROXEN. CURRENT MEDICATIONS: Meloxicam, lovastatin, oxybutynin, sertraline, ropinirole, cholecalciferol, omeprazole, benazepril, amlodipine and hydrochlorothiazide. SOCIAL HISTORY: The patient continues to smoke half pack tobacco per day. Denies IV or illicit drug use. Denies any chronic alcohol use. She is unaccompanied today. IMAGING: No new imaging available. PQRS: The patient has osteoarthritic changes of the lumbar spine, bilateral hips, no rheumatoid arthritis. She is placing pain intensity today at 5/10. She is a fall risk, had a fall 2 days ago. She is using a walker for ambulation. She does not take blood thinners. She is treated for hypertension. She is not on chronic opioids, has a low opioid addiction potential. Pain impact score of 60/70, indicating severe near complete interference of daily activities secondary to pain. PHYSICAL EXAMINATION: [facility] [address] [place] [address] PAIN MANAGEMENT CONSULTATION Name: RG FITZGERALD NAZ Room #: REG [facility] [id number] Admission: 12/17/18 ������������������ Attend Phys: Giuliano Duenas DO Discharge: ������������������ Date of : 38 Report #: [id number] VITAL SIGNS: Blood pressure 134/62, pulse 74, respiratory rate 15 and unlabored. The patient is 98% on room air. Height 5 feet 3 inches tall, weight 158 pounds, BMI calculated 28. GENERAL: Well-developed, well-nourished, well-hydrated 78-year-old female, appearing stated age, placing current pain score at 5/10. HEENT: Normocephalic, atraumatic. Pupils equal, round, reactive to light. EXTREMITIES: Show no clubbing, no cyanosis, and no edema. MUSCULOSKELETAL: Lower extremity strength is diminished bilaterally. There is some weakness noted. Rating muscle strength at approximately 4/5. Seated straight leg raising negative. Supine straight leg raising positive. Dallas test negative. Gait is extremely antalgic. Ankle clonus negative. Babinski is negative. ASSESSMENT: 1. Symptomatic lumbar radiculopathy. 2. Spinal stenosis of the lumbar spine. 3. Displacement of lumbar intervertebral disk with radiculopathy. 4. Lumbosacral spondylosis with radiculopathy. 5. Lumbar degeneration. 6. Chronic intractable pain. PLAN: 1. The patient has returned today in followup visit having sustained a recent fall 2 days ago where she indicates that she "just lost the use of her legs due to weakness." She denies injury or trauma beyond this fall. She states that the weakness have begun to progress, and it is concerning that the patient's spinal stenosis has reached a level where epidural injections, medication management cannot provide prolonged benefit. This, given the weakness as well, leads this patient into a very dangerous area of potential falls and detrimental harm. We discussed this with the patient today. She has returned requesting an epidural injection in hopes of improving symptoms, but understands that if epidural injections cannot provide further improvement, surgical options may be necessary. She returns today in followup visit to undergo next in the series of epidural injections. 2. No medication changes made at today's visit. The patient will continue current medical therapy as previously prescribed. 3. We have cautioned the patient throughout today's appointment to utilize the roller walker consistently, especially with these recent falls. We reeducated the patient on how to use a roller walker as she was essentially pushing the walker around and was not able to utilize it appropriately. We adjusted the patient's positioning, and this should help the patient with further balance issues. We would recommend that the patient's primary care physician send the patient for gait training if the patient continues to remain unsteady while walking and/or standing erect. 4. We will see the patient back in followup visit on an as needed basis for possible next in a series of epidural injections to address lumbar radicular [facility] [address] [place] [address] PAIN MANAGEMENT CONSULTATION Name: RG FITZGERALD [facility] #: [facility] [id number] Admission: 12/17/18 ������������������ Attend Phys: Giuliano Duenas DO Discharge: ������������������ Date of : 38 Report #: [id number] symptoms secondary to progressively worsening spinal stenosis PROCEDURE NOTE. DESCRIPTION OF PROCEDURE: L5-S1 intralaminar epidural steroid injection under fluoroscopic guidance. After obtaining written consent, the patient was taken back to fluoroscopy suite, placed in prone position with pillow under abdomen to decrease lumbar lordosis. Skin overlying lumbosacral area then prepped and draped in aseptic fashion. The lumbar intervertebral spaces were identified by AP fluoroscopy. Skin and subcutaneous tissue overlying target site of injection anesthetized with 3 mL of 1% lidocaine. A 20-gauge 3-1/2 inch Tuohy needle advanced under fluoroscopic guidance towards the epidural space using a parasagittal approach. Epidural space identified using loss of resistance to air technique. After negative aspiration for heme or cerebrospinal fluid, 1 mL of Omnipaque injected. Lumbar epidurogram confirmed using both AP and lateral fluoroscopy. After negative aspiration for heme or cerebrospinal fluid, 5 mL of solution containing 2 mL 40 mg per mL, 80 mg total triamcinolone and 3 mL lidocaine 1% injected slowly. Needle then retracted approximately half way, flushed with 1 mL of 1% lidocaine and then removed. Sterile bandage placed over injection site. No new motor deficits present in the lower extremity following procedure. The patient tolerated procedure well, carefully escorted to recovery room in stable condition. No apparent complication. After meeting discharge criteria, the patient discharged home. ��������������������������������������������� ���������������������������������������� By: ��������������������������������������������� 1752 1031 Giuliano Duenas DO /nt
[2018-12-17 11:21] VITALS: BP 134/62
--- NOTE | 2018-12-17 11:29 | NUR ---
Pain Clinic Assessment: 1. History of Osteoarthritis: SPINE RIGHT KNEE History of Rheumatoid Arthritis: Not Applicable 2. Height: 5 ft. 3 in. 160.0 cm. Weight: 158.0 lb. oz. 71.668 kg. Patient's BMI: 28.0 3. Vital Signs: BP: 134/62 Pulse: 74 Resp: 15 Temp: 02 Sat: 98 ECG Mon: 4. Pain Intensity: 5 5. Fall Risk: Dizziness: N Needs help standing or walking: Y Fallen in the last 3 months: Y Fall risk comments: USES WALKER FELL 2 DAYS AGO 6. Patient on Blood Thinner: None 7. History of Hypertension: Y 8. Opioid Therapy greater than 6 weeks: N Opiate Contract Signed: 9. Risk Assessment Tool Provided: 10. Functional Assessment Tool: 11. 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
== END | disposition home or self-care (01) ==
LOC: PAIN 09:24
DX: M51.16 Intervertebral disc disorders with radiculopathy, lumbar region (principal); M48.061 Spinal stenosis, lumbar region without neurogenic claudication; M47.27 Other spondylosis with radiculopathy, lumbosacral region; G89.29 Other chronic pain; M16.0 Bilateral primary osteoarthritis of hip; I10 Essential (primary) hypertension; F17.210 Nicotine dependence, cigarettes, uncomplicated; Z88.8 Allergy status to other drugs, medicaments and biological substances; Z79.899 Other long term (current) drug therapy; Z88.2 Allergy status to sulfonamides; Z87.440 Personal history of urinary (tract) infections; Z98.890 Other specified postprocedural states

== ENCOUNTER → 2018-12-18 | Outpatient (CLI) | payer OTHER | LOC: SEN 12:55 | DX: Z09 Encounter for follow-up examination after completed treatment for conditions other than malignant neoplasm (principal); I10 Essential (primary) hypertension; E78.5 Hyperlipidemia, unspecified; G89.29 Other chronic pain; M54.5 Low back pain; R60.0 Localized edema; F03.90 Unspecified dementia, unspecified severity, without behavioral disturbance, psychotic disturbance, mood disturbance, and anxiety ==

== ENCOUNTER → 2019-01-12 | Outpatient (CLI) | payer OTHER ==
--- NOTE | 2019-01-12 10:54 | 2DMMODE ---
[facility] [place] [address] [place] [address] 2 D/M-MODE ECHOCARDIOGRAM Name: RG FITZGERALD NAZ Room #: REG [facility]#: [id number] Admission: 01/12/19 Attend Phys: Hieu Carrera MD Discharge: Date of : 36 Date of Service: 01/12/19 1054 Report #: [id number] THIS REPORT FOR: //name// APPROVED REPORT Study performed: 01/12/2019 09:32:43 EXAM: Comprehensive 2D, Doppler, and color-flow Echocardiogram Patient Location: Echo lab Status: routine BSA: 1.74 HR: 60 bpm BP: 110/62 mmHg Rhythm: NSR Other Information Study Quality: Adequate Indications Dyspnea Chest Pain 2D Dimensions RVDd: 33.80 mm IVSd: 13.27 (7-11mm) LVOT Diam: 20.21 (18-24mm) LVDd: 37.07 mm PWd: 12.04 (7-11mm) Ascending Ao: 31.30 (22-36mm) LVDs: 23.93 (25-40mm) Aortic Root: 28.08 mm IVC: 13.00 mm Volumes Left Atrial Volume (Systole) Single Plane 4CH: 30.63 mL Single Plane 2CH: 53.15 mL LA ESV Index: 26.00 mL/m2 Aortic Valve AoV Peak Vinicius.: 1.14 m/s AO Peak Gr.: 5.16 mmHg LVOT Max P.15 mmHg LVOT Max V: 0.89 m/s ROSA Vmax: 2.51 cm2 Mitral Valve E/A Ratio: 1.3 MV Decel. Time: 253.04 ms [facility] [address] [address] 2 D/M-MODE ECHOCARDIOGRAM Name: PAOLASURENDRASHANDARGPETER CHILDS Room #: REG [facility]#: [id number] Admission: 01/12/19 Attend Phys: Hieu Carrera MD Discharge: Date of : 36 Date of Service: 01/12/19 1054 Report #: [id number] E Max Vinicius.: 0.79 m/s MV A Vinicius.: 0.63 m/s MV PHT: 73.38 ms IVRT: 96.89 ms Pulmonary Valve PV Peak Vinicius.: 0.74 m/s PV Peak Gr.: 2.22 mmHg Pulmonary Vein P Vein S: 0.51 m/s P Vein A: 0.22 m/s P Vein D: 0.39 m/s P Vein A Dur.: 147.6 msec P Vein S/D Ratio: 1.31 Tricuspid Valve TR Peak Vinicius.: 2.38 m/s RAP Estimate: 5.00 mmHg TR Peak Gr.: 22.64 mmHg PA Pressure: 28.00 mmHg Left Ventricle The left ventricle is normal size. Mild concentric left ventricular hypertrophy. The left ventricular systolic function is normal. The left ventricular ejection fraction is within the normal range. LVEF is 55-60%. Moderate diastolic dysfunction is present (pseudonormal filling). Right Ventricle The right ventricle is normal size. The right ventricular systolic function is normal. Atria The left atrium size is normal. The right atrium size is normal. Aortic Valve Aortic valve leaflets are mildly thickened. No aortic regurgitation is present. There is no aortic valvular stenosis. Mitral Valve The mitral valve is normal in structure. Trace mitral regurgitation. No evidence of mitral valve stenosis. Tricuspid Valve The tricuspid valve is normal in structure. Trace to mild tricuspid regurgitation. PAP is estimated at 28 [place] [address] 2 D/M-MODE ECHOCARDIOGRAM Name: RG FITZGERALD Room #: REG [facility]#: [id number] Admission: 01/12/19 Attend Phys: Hieu Carrera MD Discharge: Date of : 38 Date of Service: 01/12/19 1054 Report #: [id number] The pulmonary valve is normal in structure. There is no pulmonic valvular regurgitation. Great Vessels The aortic root is normal in size. IVC is normal in size and collapses >50% with inspiration. Pericardium There is no pericardial effusion. <Conclusion> The left ventricle is normal size. Mild concentric left ventricular hypertrophy. The left ventricular systolic function is normal. Moderate diastolic dysfunction is present (pseudonormal filling). The right ventricle is normal size. The left atrium size is normal. Aortic valve leaflets are mildly thickened. Trace mitral regurgitation. Trace to mild tricuspid regurgitation. PAP is estimated at 28 mmHg. <ELECTRONICALLY SIGNED> By: Hieu Carrera MD 01/12/19 1054 1054 1054 Hieu Carrera MD /INF
== END ==
LOC: CV 08:47
DX: I36.1 Nonrheumatic tricuspid (valve) insufficiency (principal); I51.7 Cardiomegaly; E78.5 Hyperlipidemia, unspecified; Z82.49 Family history of ischemic heart disease and other diseases of the circulatory system; Z79.899 Other long term (current) drug therapy; Z88.2 Allergy status to sulfonamides; Z88.8 Allergy status to other drugs, medicaments and biological substances

== ENCOUNTER 2019-02-04 13:11 | Emergency (ER) | payer OTHER ==
[~2019-02-04] VITALS: Ht 160 cm; Wt 90.7 kg
[2019-02-04 15:07] LABS: URINE BILIRUBIN NEGATIVE (Negative); URINE BLOOD NEGATIVE (Negative); URINE CLARITY CLOUDY; URINE COLOR YELLOW; URINE GLUCOSE-RANDOM* NEGATIVE (Negative); URINE KETONES NEGATIVE (Negative); URINE LEUKOCYTES 2+ (Negative); URINE NITRITE POSITIVE (Negative); URINE PROTEIN (DIPSTICK) NEGATIVE (Negative)
[2019-02-04 15:14] LABS: SQUAMOUS 0-3 Few /LPF (0-3)
[2019-02-04 15:15] LABS: BACTERIA >30 Many /HPF (None Seen); CASTS None Seen /LPF (None Seen); CRYSTALS None Seen /LPF (None Seen); URINE RBC 0-2 Rare /HPF (0-2)
[2019-02-04] MEDS ORDERED: KEFLEX500 M1 PO (15:27)
[2019-02-04 16:25] VITALS: BP 137/65
== END 2019-02-04 16:27 | disposition home or self-care (01) ==
LOC: ER 13:11
PROVIDERS: Physician Assistant
DX: S20.212A Contusion of left front wall of thorax, initial encounter (principal); N39.0 Urinary tract infection, site not specified; I10 Essential (primary) hypertension; E78.00 Pure hypercholesterolemia, unspecified; F17.210 Nicotine dependence, cigarettes, uncomplicated; Z88.0 Allergy status to penicillin; Z88.1 Allergy status to other antibiotic agents; Z88.6 Allergy status to analgesic agent; W18.39XA Other fall on same level, initial encounter; Y92.009 Unspecified place in unspecified non-institutional (private) residence as the place of occurrence of the external cause; Y93.89 Activity, other specified; Y99.8 Other external cause status

== ENCOUNTER 2019-03-18 15:08 | Emergency (ER) | payer OTHER ==
[~2019-03-18] VITALS: Ht 157.5 cm; Wt 69.0 kg
[~2019-03-18 15:08] MED LIST changes: +KEFLEX500 M1 PO
[2019-03-18] MEDS ORDERED: NORCO 5-325 TA1 EAC1 PO (18:06)
[2019-03-18 18:55] VITALS: BP 110/67
== END 2019-03-18 18:54 | disposition home or self-care (01) ==
LOC: ER 15:08
DX: S46.811A Strain of other muscles, fascia and tendons at shoulder and upper arm level, right arm, initial encounter (principal); S50.811A Abrasion of right forearm, initial encounter; S80.211A Abrasion, right knee, initial encounter; I10 Essential (primary) hypertension; E78.00 Pure hypercholesterolemia, unspecified; F17.210 Nicotine dependence, cigarettes, uncomplicated; Z88.6 Allergy status to analgesic agent; Z88.2 Allergy status to sulfonamides; Z88.1 Allergy status to other antibiotic agents; W18.39XA Other fall on same level, initial encounter; Y92.89 Other specified places as the place of occurrence of the external cause; Y93.89 Activity, other specified; Y99.8 Other external cause status

== ENCOUNTER → 2019-08-25 | Outpatient (CLI) | payer OTHER ==
[~2019-08-25] VITALS: Ht 160 cm; Wt 60.8 kg
[2019-08-25 13:49] VITALS: BP 134/69
--- NOTE | 2019-08-25 13:52 | NUR ---
Pain Clinic Assessment: 1. History of Osteoarthritis: SPINE RIGHT KNEE History of Rheumatoid Arthritis: Not Applicable 2. Height: 5 ft. 3 in. 160.0 cm. Weight: 134.0 lb. oz. 60.782 kg. Patient's BMI: 23.7 3. Vital Signs: BP: 134/69 Pulse: 79 Resp: 16 Temp: 02 Sat: 97 ECG Mon: 4. Pain Intensity: 10 5. Fall Risk: Dizziness: N Needs help standing or walking: Y Fallen in the last 3 months: Y Fall risk comments: USES WALKER FELL 2 DAYS AGO 6. Patient on Blood Thinner: None 7. History of Hypertension: Y 8. Opioid Therapy greater than 6 weeks: N Opiate Contract Signed: 9. Risk Assessment Tool Provided: 10. Functional Assessment Tool: 11. Recreational Drug Use: Never Drug Type: Tobacco Use: Current Every Day Smoker Tobacco Type: Amount or Packs/day: How Many Years: Alcohol Use: Yes Frequency: Quant:
--- NOTE | 2019-08-26 11:57 | HPC ---
[facility] [place] [address] PAIN MANAGEMENT CONSULTATION Name: RG FITZGERALD Room #: REG [facility].#: [id number] Admission: 08/25/19 Attend Phys: Severo Duenas DO Discharge: Date of : 38 Report #: [id number] THIS REPORT FOR: cc: Floyd Rios MD, Shyam MD Johnson, James E. DO ~ DATE OF SERVICE: 08/25/2019 REFERRING PHYSICIAN: Dr. Severo Lala. CHIEF COMPLAINT: Low back pain, bilateral lower extremity pain and paresthesias. HISTORY OF PRESENT ILLNESS: As you know, the patient is an 79-year-old female who returns today in followup visit with recurrent lumbar radicular symptoms secondary to severe central canal stenosis. As you are well aware, the patient had marked spinal canal stenosis noted on her 04/10/2007 imaging study and this has progressively worsened. The patient has experienced 3 falls in the last month and a quarter, the most recent less than 2 days ago. She states she is beginning to experience weakness and numbness and tingling consistent with central canal stenosis progression. She returns today in followup visit to discuss treatment options including a possible epidural injection. ALLERGIES: ERYTHROMYCIN, SULFA AND NAPROXEN. CURRENT MEDICATIONS: Meloxicam, lovastatin, oxybutynin, sertraline, ropinirole, cholecalciferol, omeprazole, benazepril, amlodipine and hydrochlorothiazide. SOCIAL HISTORY: The patient denies IV or illicit drug use. Denies any chronic alcohol use. She reports herself as a smoker, approximately half pack tobacco per day. She is accompanied by her daughter who is present in room today. IMAGING: No new imaging available. PQRS: The patient has known arthritic changes of the lumbar spine, bilateral hips, reports no rheumatoid arthritis. She is placing pain intensity today at 10/10. She is a fall risk and has had falls as recent as 2 days ago, 3 in the last couple of months. She is utilizing a wheelchair at this time, but does not consistently using an ambulatory device despite our recommendations to do so. She is not on blood thinners, but is treated for hypertension. She is not on chronic opioids, has a low opioid addiction potential. Pain impact score is 60/70, near complete interference of daily activities secondary to pain. PHYSICAL EXAMINATION: VITAL SIGNS: Blood pressure 134/69, pulse 79, respiratory rate 16 and [facility] [address] [place] [address] PAIN MANAGEMENT CONSULTATION Name: RG FITZGERALD Room #: REG [facility].#: [id number] Admission: 08/25/19 Attend Phys: Severo Duenas DO Discharge: Date of : 38 Report #: [id number] unlabored. The patient is 97% on room air. Height 5 feet 3 inches tall, weight 134 pounds, BMI calculated 23.7. GENERAL: Well-developed, well-nourished, well-hydrated 79-year-old female, appearing stated age, no acute distress, reporting pain score 10/10. HEENT: Normocephalic, atraumatic. Pupils equal, round, reactive to light. Speech fluent per patient. EXTREMITIES: Show no clubbing, no cyanosis, no edema. MUSCULOSKELETAL: Strength is diminished bilaterally. Weakness is noted. Rating of musculature is approximately 4-1/2 over 5. Pain is generated with seated straight leg raising and supine straight leg raising. Dallas's test is negative. Gait is extremely antalgic. Ankle clonus negative. Babinski is negative. Deep tendon reflexes are symmetrically diminished. ASSESSMENT: 1. Symptomatic lumbar radiculopathy. 2. Severe likely critical spinal canal stenosis. 3. Displacement of lumbar intervertebral disk with radiculopathy. 4. Lumbosacral spondylosis with radiculopathy. 5. Lumbar degeneration. 6. Chronic intractable pain. PLAN: 1. The patient returns today in followup visit where we have discussed our concerns of these recent falls that she is experiencing. She reports weakness in the legs and sudden drop out sensations of the lower extremities consistent with progressively worsening central canal stenosis. As you are well aware, the patient had marked central canal stenosis at the L4-L5 level in 2006 based on her April 10 imaging from that year. This has likely progressed and she is now looking at more of a marked to likely critical spinal stenosis at the L4-L5 level and I am concerned that she is going to continue to experience falls and weakness that will progress. We have discussed this with the patient today. Our options for treatment are becoming somewhat limited given the history of recent falls and the likely progression of her disease process. We discussed the following treatment options. 2. We discussed that physical therapy, stretching exercises and balance could help with improving strength in her legs, though if the weakness is truly neuropathic, this will only benefit minimally. We discussed medication management, which can assist in pain control, but will not change the weakness nor will it improve her falls. We discussed epidural injection under fluoroscopic guidance, which may improve her pain and may improve some the effects of the central canal stenosis on the motor nerves of the legs, though this is only a temporizing measure. We also discussed surgical decompression, which will likely be necessary if the patient wishes to continue to ambulate safely. The patient will consider her surgical options, but does wish to undergo an epidural injection today. 2. The patient was advised risks and benefits of a lumbar epidural injection. [facility] [address] [place] [address] PAIN MANAGEMENT CONSULTATION Name: RG FITZGERALD NAZ [id number] Admission: 08/25/19 Attend Phys: Severo Duenas DO Discharge: Date of : 38 Report #: [id number] These risks include but not necessarily limited to bleeding, bruising, infection, worsening pain, no relief of pain, also risk of temporary or permanent muscle weakness, temporary or permanent nerve damage, possible paralysis and . The patient states she understood and wished to proceed. 3. No medication changes made at today's visit. The patient will continue current medical therapy as previously prescribed. 4. We will see the patient back in followup visit on an as needed basis for possible next in the series of epidural injections. I did advise the patient if she is considering moving forward with surgical options, then a new MRI would be necessary. This can be obtained either through our services or through her primary care team. I do feel that ultimately decompression will be necessary if the patient wishes to continue to ambulate efficiently. She will keep us apprised whether or not she wishes to move forward with surgical consultations. DESCRIPTION OF PROCEDURE: Lumbar epidural steroid injection under fluoroscopic guidance. After obtaining written consent, the patient was taken back to fluoroscopy suite, placed in prone position with pillow under abdomen to decrease lumbar lordosis. Skin overlying lumbosacral area then prepped and draped in aseptic fashion. The lumbar intervertebral spaces were identified by AP fluoroscopy. Skin and subcutaneous tissue overlying target site injection anesthetized with 3 mL of 1% lidocaine. A 20-gauge 3-1/2 inch Tuohy needle advanced under fluoroscopic guidance towards the epidural space using a parasagittal approach. Epidural space identified using loss of resistance to air technique. After negative aspiration for heme or cerebrospinal fluid, 1 mL of Omnipaque injected. Lumbar epidurogram confirmed using both AP and lateral fluoroscopy. After negative aspiration for heme or cerebrospinal fluid, 5 mL of solution containing 2 mL 40 mg per mL, 80 mg total triamcinolone along with 3 mL of lidocaine 1% injected slowly. Needle then retracted long term, flushed with 1 mL of 1% lidocaine and then removed. Sterile bandage placed over injection site. There were no new motor deficits present in the lower extremities following the procedure. The patient tolerated procedure well, carefully escorted to recovery room in stable condition. No apparent complications. After meeting discharge criteria, the patient discharged home. <ELECTRONICALLY SIGNED> By: Severo Duenas DO 08/26/19 1157 [id number] 1723 Severo Duenas DO /nt
== END | disposition home or self-care (01) ==
LOC: PAIN 06:43
DX: M51.16 Intervertebral disc disorders with radiculopathy, lumbar region (principal); M48.061 Spinal stenosis, lumbar region without neurogenic claudication; G89.29 Other chronic pain; F17.210 Nicotine dependence, cigarettes, uncomplicated; Z88.8 Allergy status to other drugs, medicaments and biological substances; Z88.2 Allergy status to sulfonamides; Z79.899 Other long term (current) drug therapy; Z98.890 Other specified postprocedural states

== ENCOUNTER → 2020-02-15 | Outpatient (CLI) | payer OTHER | LOC: SJCVC 11:09 | PROVIDERS: ATTEND Internal Medicine Cardiovascular Disease | DX: R94.31 Abnormal electrocardiogram [ECG] [EKG] (principal); I10 Essential (primary) hypertension; E78.00 Pure hypercholesterolemia, unspecified; R07.9 Chest pain, unspecified; M16.0 Bilateral primary osteoarthritis of hip; M17.0 Bilateral primary osteoarthritis of knee; E78.5 Hyperlipidemia, unspecified; R00.1 Bradycardia, unspecified; Z72.0 Tobacco use; Z79.899 Other long term (current) drug therapy ==

== ENCOUNTER → 2020-03-17 | Outpatient (CLI) | payer OTHER | LOC: MRI 09:54 | PROVIDERS: ATTEND Anesthesiology Pain Medicine | DX: M51.26 Other intervertebral disc displacement, lumbar region (principal); M43.16 Spondylolisthesis, lumbar region; M48.061 Spinal stenosis, lumbar region without neurogenic claudication; M47.816 Spondylosis without myelopathy or radiculopathy, lumbar region ==

== ENCOUNTER → 2020-03-29 | Outpatient (CLI) | payer OTHER ==
[~2020-03-29] VITALS: Ht 160 cm; Wt 68.0 kg
--- NOTE | ~2020-03-29 | HPC ---
[facility] [place] [address] PAIN MANAGEMENT CONSULTATION Name: RG FITZGERALD Room #: REG Dominique ..#: [id number] Admission: 03/29/20 Attend Phys: Severo Duenas DO Discharge: Date of : 38 Report #: [id number] CC: Severo Rios MD DATE OF SERVICE: 03/29/2020 REFERRING PHYSICIAN: Floyd Rios MD CHIEF COMPLAINT: Low back pain, bilateral lower extremity pain and paresthesias. HISTORY OF PRESENT ILLNESS: As you know, the patient is an 79-year-old female who was last seen in our clinic on 08/25/2019 having undergone epidural injection under fluoroscopic guidance with only transient improvement. I requested the patient undergo MRI of the lumbar spine as well as very concerned about progressively worsening central canal stenosis. The patient did not undergo the MRI until just recently 03/17/2020, which showed very concerning spinal stenosis rated at 4 mm maximum AP diameter at the L4-L5 level. There was noted an acute superior L1 compression fracture that was spontaneous in nature. The patient was not experiencing pain in the L1 area nor did she experience any pain in that area today. She returns today in followup visit reporting pain from the low back radiating down the legs in classic central canal stenosis distribution with pain level of 6/10. She returns to discuss the findings of her MRI and treatment options. The patient has not suffered any new injury or trauma that may have led to any of the symptoms she is experiencing currently. ALLERGIES: ERYTHROMYCIN, SULFA AND NAPROXEN. CURRENT MEDICATIONS: Meloxicam 15 mg once a day, rosuvastatin 5 mg once a day, oxybutynin 5 mg at bedtime, sertraline 50 mg p.o. at bedtime, ropinirole 0.25 mg p.o. at bedtime, vitamin D3 50,000 units per week, omeprazole 20 mg once a day, benazepril 5 mg once a day, amlodipine 5 mg once a day, hydrochlorothiazide 12.5 mg once a day. SOCIAL HISTORY: The patient denies IV or illicit drug use. Denies any chronic alcohol use. She reports that she is a smoker, smokes approximately half pack to 3/4 of pack per day and continues despite recommendations to discontinue. She is accompanied by her daughter and son who is in room today. IMAGING: No new imaging available. PQRS: The patient has known arthritic changes of the lumbar spine, bilateral hips. No rheumatoid arthritis. She is placing pain intensity at 6/10. She is a fall risk, reports that she has had a fall in last 3 months, but cannot advise us of how this occurred. She is in a wheelchair today, but typically uses a roller walker. She is not on blood thinners, but is treated for hypertension. She is not on chronic opioids, has a moderate to high risk of opioid addiction based on our assessment tool. Pain impact is 47/70, severe interference of daily activities secondary to pain. PHYSICAL EXAMINATION: VITAL SIGNS: Blood pressure 114/53, pulse 58, respiratory rate 16 and unlabored. The patient is 98% on room air. Height 5 feet 3 inches tall, weight 150 pounds, BMI calculated 26.6. GENERAL: Well-developed, well-nourished 79-year-old female, appears her stated age. She is in no acute distress, awake, alert. Pain rated today at 6/10. HEENT: Normocephalic, atraumatic. Pupils are round, not fixed nor dilated, no anisocoria. LUNGS: Decreased breath sounds bilaterally, prolonged expiratory phase consistent with a longtime smoker. EXTREMITIES: Show no clubbing, no cyanosis. No appreciable edema. MUSCULOSKELETAL: Lower extremity strength is weakened bilaterally, appearing to be due to deconditioning. There is no specific muscle weakness. There is no atrophy noted. Seated straight leg raising is positive. Supine straight leg raising is positive. Dallas's test is negative. Modified Gaenslen's causes axial back pain. There is no spinous process tenderness over the lumbar or thoracic areas. There is some paraspinal muscle tenderness in the lower lumbar spine. ASSESSMENT: 1. 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 2. Displacement of lumbar intervertebral disk with radiculopathy. 3. Facet arthropathy of the lumbar spine. 4. Spontaneous L1, superior endplate compression fracture. 5. Lumbar degeneration. 6. Neurogenic claudication. 7. Chronic intractable pain. PLAN: 1. The patient returns today in followup visit where we spent over 35 minutes of time reviewing the patient's recent MRI. It does show an L1 compression fracture of superior endplate of about 25%. It does appear that the lateral and posterior thomas appear stable and rigid, does not appear that the patient has had any retropulsion. We discussed with the patient treatment options for compression fractures, though at this point, the patient is experiencing no pain in the area and is unaware of when this may have occurred. This appears to be a spontaneous fracture and can be treated conservatively or more aggressively. We discussed that with the patient today. We discussed physical therapy, stretching exercises, core strengthening as a treatment option. We discussed medication management with core strengthening and exercise programs. We discussed TLSO bracing and ultimately vertebral augmentation with either vertebroplasty or kyphoplasty. The patient chose to remain watchful in waiting and chose not to address this issue at today's visit. She will consider her options if her symptoms to begin to correlate to the L1 level. We have advised the patient to take care when ambulating or doing any activities. She should lower herself into a chair easily and not with forces. This could cause further compression. 2. In regards to the patient's severe near critical central canal stenosis, we discussed treatment options, which unfortunately are very limited. The patient is undergoing epidural injections over a period of about 4 years, but have begun to slowly lose efficacy. Most recent epidural injection only lasted for about 2 weeks and thus this prompted our MRI imaging. We have found that the patient is suffering from severe near critical spinal stenosis at L4-L5 level and we discussed the treatment options that we have available to us at this point. The following was discussed with the patient today. We discussed physical therapy, stretching exercises and core strengthening as a treatment course. This will maintain strength and could potentially improve pain. We discussed medication management, which could provide some transient analgesic benefit, but will ultimately lose efficacy due to the severity of the stenosis. We discussed epidural injections as a temporizing measure though I do not feel these will provide much in the way of improvement given the history of reduction in efficacy and analgesic timeframe with each subsequent injection over the last year. We also discussed surgical options with the patient, which I do believe will be necessary given the severity of the stenosis. After reviewing the risks and benefits of all proposed treatment options, the patient chose to move forward with surgical consultation. 3. The patient was provided a referral to [facility] to see either Dr. Hsu or Dr. Cabezas. A referral was generated at the clinic today. She will follow up with Dr. Hsu or Raulito at her earliest convenience. We have advised the patient to obtain copies of her MRI in digital form to take to that consultation. 4. We made no changes in medication management at this time. The patient will continue current medical therapy as prior prescribed. 5. We plan to see the patient back in followup visit on an as needed basis. We wish her luck with decompression surgery at the L4-L5 level. We are hopeful this will provide the patient with benefit and improvement in functionality. The patient has reported some urinary incontinence, which I am having difficulty determining if this is strictly age-related urinary incontinence or stress related urinary incontinence versus neurogenic bladder. Given the severity of the stenosis, I am very concerned about neurogenic bladder. She will discuss this with the neurosurgeon as well. 6. We will see the patient back in followup visit on an as needed basis. By: 1144 [id number] Severo Duenas DO /neena
[2020-03-29 14:37] VITALS: BP 114/53
--- NOTE | 2020-03-29 15:03 | NUR ---
Pain Clinic Assessment: 1. History of Osteoarthritis: SPINE RIGHT KNEE History of Rheumatoid Arthritis: Not Applicable 2. Height: 5 ft. 3 in. 160.0 cm. Weight: 150.0 lb. oz. 68.040 kg. Patient's BMI: 26.6 3. Vital Signs: BP: 114/53 Pulse: 58 Resp: 16 Temp: 02 Sat: 98 ECG Mon: 4. Pain Intensity: 6 5. Fall Risk: Dizziness: N Needs help standing or walking: Y Fallen in the last 3 months: Y Fall risk comments: USES WALKER FELL 2 DAYS AGO 6. Patient on Blood Thinner: None 7. History of Hypertension: Y 8. Opioid Therapy greater than 6 weeks: N Opiate Contract Signed: 9. Risk Assessment Tool Provided: 4-MOD 10. Functional Assessment Tool: 11. Recreational Drug Use: Never Drug Type: Tobacco Use: Current Every Day Smoker Tobacco Type: Cigarettes Amount or Packs/day: 1/2 PER DAY How Many Years: 64 Alcohol Use: Yes Frequency: Weekly Quant: 1-2
== END ==
LOC: PAIN 06:44
PROVIDERS: ATTEND Anesthesiology Pain Medicine
DX: M51.16 Intervertebral disc disorders with radiculopathy, lumbar region (principal); M48.061 Spinal stenosis, lumbar region without neurogenic claudication; G89.4 Chronic pain syndrome; Z79.891 Long term (current) use of opiate analgesic

== ENCOUNTER → 2020-06-14 | Outpatient (CLI) | payer OTHER ==
[~2020-06-14] VITALS: Ht 160 cm; Wt 69.9 kg
[~2020-06-14] MED LIST changes: +PROTONIX40 M2 PO
[2020-06-14 10:42] VITALS: BP 126/58
--- NOTE | 2020-06-14 10:50 | NUR ---
Pain Clinic Assessment: 1. History of Osteoarthritis: SPINE RIGHT KNEE History of Rheumatoid Arthritis: Not Applicable 2. Height: 5 ft. 3 in. 160.0 cm. Weight: 154.0 lb. oz. 69.854 kg. Patient's BMI: 27.3 3. Vital Signs: BP: 126/58 Pulse: 58 Resp: 16 Temp: 02 Sat: 99 ECG Mon: 4. Pain Intensity: 6-7 5. Fall Risk: Dizziness: N Needs help standing or walking: N Fallen in the last 3 months: Y Fall risk comments: USES WALKER FELL 2 DAYS AGO 6. Patient on Blood Thinner: None 7. History of Hypertension: Y 8. Opioid Therapy greater than 6 weeks: N Opiate Contract Signed: 9. Risk Assessment Tool Provided: 4-MOD 10. Functional Assessment Tool: 11. Recreational Drug Use: Never Drug Type: Tobacco Use: Current Every Day Smoker Tobacco Type: Cigarettes Amount or Packs/day: 1/2 PACK How Many Years: Alcohol Use: Yes Frequency: Special Occasions Quant: 1
--- NOTE | 2020-06-15 13:35 | HPC ---
[facility] [place] [address] PAIN MANAGEMENT CONSULTATION Name: RG FITZGERALD Room #: REG [facility]..#: [id number] Admission: 06/14/20 Attend Phys: Severo Duenas DO Discharge: Date of : 38 Report #: [id number] THIS REPORT FOR: cc: Floyd Rios MD, Shyam MD Johnson, James E. DO ~ DATE OF SERVICE: 06/14/2020 REFERRING PHYSICIAN: Dr. Floyd Rios CHIEF COMPLAINT: Right shoulder pain. HISTORY OF PRESENT ILLNESS: As you know, the patient is an 79-year-old female who was originally seen in our clinic for lumbar radiculopathy. Unfortunately, the patient required surgical decompression of the severe central canal stenosis, which has improved her overall pain, though the patient had a very complicated recovery due to COVID-19. She has begun to improve from the illness and has been recently discharged. She has continued to experience right shoulder pain for which she returns today to undergo right intra-articular shoulder injection under fluoroscopic guidance. As you are aware, the patient has significant arthritic changes of the right shoulder and rotator cuff injury, which may be amenable to this injection. She has returned to undergo the first in a series of right shoulder injections. ALLERGIES: ERYTHROMYCIN, SULFA AND NAPROXEN. CURRENT MEDICATIONS: See chart. SOCIAL HISTORY: The patient denies IV or illicit drug use. Denies any chronic alcohol use. She is a smoker, but smokes approximately 1/2 pack to 3/4 of pack per day. She is accompanied by her daughter who is present in room today. IMAGING: No new imaging available. PQRS: The patient has known arthritic changes of the lumbar spine, bilateral hips and bilateral shoulders. No rheumatoid arthritis. She is placing current pain score at 6-7/10. She is a fall risk, but has not had a fall in last 3 months. She is in a wheelchair. She is accompanied by her daughter. She is not on chronic opioids, has a [id number] opioid addiction based on assessment tool. Pain impact remains at 50/70, severe interference of daily activities secondary to pain. PHYSICAL EXAMINATION: GENERAL: An 79-year-old female who is somewhat confused, answers questions periodically. She is in no acute distress. HEENT: Normocephalic, atraumatic. Pupils are round, not fixed or dilated. She [address] [address] PAIN MANAGEMENT CONSULTATION Name: RG FITZGERALD Room #: REG [facility].#: [id number] Admission: 06/14/20 Attend Phys: Severo Duenas DO Discharge: Date of : 38 Report #: [id number] is in a mask due to compliance with COVID-19 regulations. EXTREMITIES: Show no clubbing, no cyanosis. No appreciable edema. MUSCULOSKELETAL: Active and passive range of motion of right shoulder is met with increasing pain. There does appear to be a slight drop off of the shoulder when compared to the left. There is palpatory tenderness over the shoulder itself. ASSESSMENT: 1. Right shoulder pain. 2. Right shoulder osteoarthritis. PLAN: 1. The patient returns today in followup visit having recently been released from the hospital after a protracted recovery from surgery and subsequent COVID-19 infection. She has begun to return to normal activities of daily living, but continues to experience right shoulder pain. We had discussed with the patient in the past if her symptoms did not improve spontaneously, we would be more than willing to provide a right intra-articular shoulder injection to address ongoing pain. She returns to undergo the procedure today. The patient has been advised risks and benefits of a right intra-articular shoulder injection. These risks include, but are not necessarily limited to; bleeding, bruising, infection, worsening of pain, no relief of pain, temporary or permanent muscle weakness, temporary joint destruction and . The patient states understood and wished to proceed. 2. No medication changes made at today's visit. The patient will continue current medical therapy as prior prescribed. 4. We plan to see the patient back in followup visit on an as needed basis. We are hopeful the patient will see good benefit with today's right shoulder injection. <ELECTRONICALLY SIGNED> By: Severo Duenas DO 06/15/20 1335 1232 1248 Severo Duenas DO /nt
--- NOTE | 2020-06-15 13:35 | O ---
[facility] [place] [address] OPERATIVE REPORT Name: RG FITZGERALD Room #: REG [facility].#: [id number] Admission: 06/14/20 Attend Phys: Severo Duenas DO Discharge: Date of : 38 Report #: [id number] THIS REPORT FOR: cc: Floyd Rios MD, Shyam MD Johnson, James E. DO ~ DATE OF SERVICE: 06/14/2020 PROCEDURE PERFORMED: Right intra-articular shoulder injection under fluoroscopic guidance. DESCRIPTION OF PROCEDURE: After obtaining written consent, the patient was taken back to fluoroscopy suite, placed in a supine position. The image intensifier/C arm was brought into position over the right shoulder and AP imaging was obtained. The area over the right shoulder was then prepped and draped with chlorhexidine and marked with a sterile marker. A 27-gauge 1-1/4 inch needle was then used to anesthetize skin and subcutaneous tissue with 2 mL of 1% lidocaine. A 27-gauge 1-1/4-inch needle was then advanced into the right shoulder joint under direct visualization. Needle was advanced until reaching the proximal head of the humerus. Needle was then retracted approximately 1 mm and aspiration noted to be negative for heme. After negative aspiration for heme, 0.4 mL of Omnipaque injected, demonstrating excellent right shoulder arthrogram. After negative aspiration for heme, 3 mL of a solution containing 1 mL 40 mg per mL, 40 mg total triamcinolone along with 2 mL bupivacaine 0.5% injected slowly. Needle retracted long term, flushed with 1 mL of 1% lidocaine and then removed. Sterile bandage placed over injection site. There were no new motor deficits in the right upper extremity following procedure. The patient tolerated the procedure well, carefully escorted to recovery room in stable condition. No apparent complications. After meeting discharge criteria, the patient discharged home. <ELECTRONICALLY SIGNED> By: Severo Duenas DO 06/15/20 1335 1232 1250 Severo Duenas DO /nt
== END | disposition home or self-care (01) ==
LOC: PAIN 06:53
PROVIDERS: ATTEND Anesthesiology Pain Medicine
DX: M25.511 Pain in right shoulder (principal); M19.011 Primary osteoarthritis, right shoulder; G89.29 Other chronic pain; Z98.890 Other specified postprocedural states; Z79.899 Other long term (current) drug therapy; Z88.2 Allergy status to sulfonamides; Z88.8 Allergy status to other drugs, medicaments and biological substances

== ENCOUNTER 2020-08-27 22:44 | Emergency (ER) | payer OTHER ==
[~2020-08-27] VITALS: Ht 162.6 cm; Wt 72.1 kg
[2020-08-27 23:07] LABS: URINE BILIRUBIN NEGATIVE (Negative); URINE BLOOD NEGATIVE (Negative); URINE CLARITY CLOUDY; URINE COLOR YELLOW; URINE GLUCOSE-RANDOM* NEGATIVE (Negative); URINE KETONES NEGATIVE (Negative); URINE LEUKOCYTES-REFLEX NEGATIVE (Negative); URINE NITRITE-REFLEX NEGATIVE (Negative); URINE PROTEIN (DIPSTICK) NEGATIVE (Negative); URINE SPECIFIC GRAVITY >= 1.030 (1.005-1.035)
[2020-08-27 23:21] LABS: BACTERIA-REFLEX >30 Many /HPF (None Seen); CASTS None Seen /LPF (None Seen); MUCUS 0-3 Light strn/LPF (None Seen); SQUAMOUS None Seen /LPF (0-3); URINE RBC 0-2 Rare /HPF (0-2); URINE WBC-REFLEX 0-5 Rare /HPF (0-5)
[2020-08-27 23:57] LABS: CRYSTALS None Seen /LPF (None Seen)
[2020-08-28] MEDS ORDERED: MACROBID 100 M100 M1 PO (00:33)
[2020-08-28] MEDS ORDERED: TYLENOL325 M1 PO (00:33)
[2020-08-28 00:39] VITALS: BP 128/53
== END 2020-08-28 01:37 | disposition home or self-care (01) ==
LOC: ER 22:44
PROVIDERS: Emergency Medicine
DX: S32.018A Other fracture of first lumbar vertebra, initial encounter for closed fracture (principal); S00.03XA Contusion of scalp, initial encounter; I10 Essential (primary) hypertension; E78.5 Hyperlipidemia, unspecified; F17.210 Nicotine dependence, cigarettes, uncomplicated; Z79.899 Other long term (current) drug therapy; Z88.1 Allergy status to other antibiotic agents; Z88.2 Allergy status to sulfonamides; Z88.8 Allergy status to other drugs, medicaments and biological substances; W18.39XA Other fall on same level, initial encounter; Y93.89 Activity, other specified; Y92.89 Other specified places as the place of occurrence of the external cause; Y99.8 Other external cause status

== ENCOUNTER 2020-09-01 13:04 | Inpatient (IN) | payer OTHER ==
[~2020-09-01] VITALS: Ht 157.5 cm; Wt 69.9 kg
--- NOTE | ~2020-09-01 | PLAN ---
[facility] [place] [address] REHAB UNIT PLAN OF CARE Name: RG FITZGERALD Room #: 505-P ADM IN M.R.#: [id number] Admission: 09/01/20 Attend Phys: Yobani Zambrano MD Discharge: Date of : 38 Report #: [id number] THIS REPORT FOR: cc: Floyd Rios MD, Shyam MD Smithson,Yobani Cordero MD ~ DATE OF SERVICE: 09/03/2020 SUBJECTIVE: The patient was seen back in followup. She was seen earlier, was in no distress. Temperature 37, pulse 62, respirations 18, blood pressure 132/58. She is pleasant, follows basic commands. Cooperative with therapies. She is on a specialized diet and has been monitored by speech therapy. This includes nectar thickened liquids and nursing has been utilizing applesauce as far as giving her medications. As far as her functional abilities, she is max assist coming to stand, can be a little bit retropulsion. Once up, she is ambulating up to 88 feet mod assist with a front-wheeled walker. In occupational therapy, lower body dressing is mod assist. In speech therapy, she does have moderate cognitive deficits with severe memory deficits. ASSESSMENT: 1. Fall with closed head injury. 2. Medical complexity with generalized debilitation. 3. Urinary tract infection. 4. Dysphagia with possible aspiration. 5. Right 8th rib fracture, status post fall. 6. History of spinal stenosis with lumbar radiculopathy, status post decompression. 7. History of COVID-19 with prolonged recovery 06/16. 8. Tobacco abuse. 9. Hypertension. 10. Dementia. PLAN: The overall plan of care is based on the preadmission screen and information garnered from therapy assessments. 1. Estimated length of stay is probably 14-21 days. 2. Medical prognosis is reasonably good. 3. Anticipated interventions includes the interdisciplinary acute inpatient rehabilitation program. 4. Anticipated functional outcomes would be for the patient to become modified independent with transfers, mobility, ADLs and to improve as far as cognition to hopefully return back to the home setting. She was a premorbid front-wheeled walker ambulator. 5. Discharge destination would be back home with her daughter in a house. 6. Expected therapy by discipline includes PT, OT and speech 1 hour per day each five days a week throughout the duration of the acute inpatient [address] [address] REHAB UNIT PLAN OF CARE Name: [facility]IL[facility] Room #: 505-P [facility]#: [id number] Admission: 09/01/20 Attend Phys: Yobani Zambrano MD Discharge: Date of : 38 Report #: [id number] rehabilitation stay. The patient's prognosis for significant practical improvement within a reasonable period of time appears good. Given the patient's complex medical condition and risk of further medical complication, rehabilitation services could not be safely provided at a lower level of care such as a alf facility. By: [id number] Yobani Zambrano MD /PAUL
[~2020-09-01 13:04] MED LIST changes: +MACROBID 100 M100 M1 PO; +TYLENOL325 M1 PO
[2020-09-01] MEDS ORDERED: TYLENOL325 M1 PO ×2 (14:26→14:28)
[2020-09-01] MEDS ORDERED: CARVEDILOL12.5 MG PO (14:29)
[2020-09-01] MEDS ORDERED: DULCOLAX STOOL100 M1 PO (14:29)
[2020-09-01] MEDS ORDERED: NORCO5 PO (14:33)
[2020-09-01] MEDS ORDERED: LIDODERM1 EACH TRANSDERM (14:37)
[2020-09-01] MEDS ORDERED: CLARITIN10 M3 PO (14:38)
[2020-09-01] MEDS ORDERED: OMEPRAZOLE 20 M20 M1 PO (14:39)
[2020-09-01] MEDS ORDERED: GLYCOLAX119 GM PO (14:40)
[2020-09-01] MEDS ORDERED: PRESERVISION A1 EAC2 PO (14:41)
[2020-09-01] MEDS ORDERED: SERTRALINE HCL100 MG PO (14:42)
[2020-09-01] MEDS ORDERED: REQUIP 0.25 M0.25 M1 PO (14:42)
[2020-09-01] MEDS ORDERED: THERAGRAN-M PR1 EAC1 PO (14:43)
--- NOTE | 2020-09-01 15:39 | NUR ---
chart review. consult for new admit. she coming for outside [facility] to acute rehab. cm spoke with her daughter ed home # [phone]. intro to cm, dcp, transition of care and team meeting. daughter reported after dad , we moved in with her. daughter trip lives there as well. she no longer drives, recently daughter had to start managing her medication. daughter has some disability as well, so if go long distance the analisa gets to use her daughter wheel chair. has fww, 4ww, shower round seat, doesnt use, has shower bench she uses. needs set up for bathing. has bilat hand rails to use up to house with 2 long steps. 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 hardly at home alone, has family support niece used to live there but now is at .
[2020-09-01 19:02] VITALS: BP 172/66
[2020-09-01 19:27] LABS: ABSOLUTE NEUTROPHILS 4.8 thou/uL (1.4-8.2); BASOPHILS 0.3 % (0.0-2.0); EOSINOPHILS 6.3 % (0.0-3.0); HEMOGLOBIN 12.8 gm/dL (12.0-15.0); LYMPHOCYTES 6.7 % (24.0-44.0); MCH 32.2 pg (26.0-34.0); MCHC 33.6 g/dL (28.0-37.0); MCV 95.9 fL (80.0-100.0); MONOCYTES 7.9 % (1.0-8.0); PLATELET COUNT 126 thou/uL (150-400); POLYS 78.8 % (36.0-66.0); RBC 3.97 mil/uL (4.20-5.00); RDW 13.2 % (10.5-14.5); WBC 6.1 thou/uL (4.0-11.0)
[2020-09-01 19:36] LABS: CREATININE 1.1 mg/dL (0.6-1.0); POTASSIUM 3.9 mmol/L (3.5-5.1)
--- NOTE | 2020-09-01 20:01 | NUR ---
DAUGHTER HOME PHONE # [phone] IF CELL PHONE NUMBER LISTED ON CHART DOES NOT WORK .
--- NOTE | 2020-09-01 20:02 | NUR ---
PT ARRIVED AT 1720 TRANSFER FROM [facility] REPORT CALLED IN FROM NURSE PATRICK AT [facility]. WHEN PT ARRIVED SHE WAS AUDIBLY WHEEZY AND APPEARED SOB. PULSE OX TAKEN AND PT WAS 92% ON ROOM AIR. RN GOT IN REPORT THAT PT DOES NOT WEAR O2. 2L NC PLACED ON PT AND HOSPITALIST CONSULTED AND PAGED. TEMPERATURE WNL AT THIS TIME. RN THOUGHT PT SEEMED TO ANSWER QUESTIONS IN A DELAYED RESPONSE SO RN CALLED PT'S DAUGHTER AND ASKED FOR HER TO SPEAK WITH PT OVER PHONE. PT WAS MORE TALKATIVE AND RESPONSIVE TO HER DAUGHTER ON PHONE. DAUGHTER STATED THAT SHE SEEMED CLOSE TO NORMAL TO HER ON THE PHONE BUT THAT SHE COULD HEAR HER WHEEZING. HOSPITALIST RETURNED CALL AND ORDERED STAT CHEST XRAY AND PLACED ORDERS FOR BREATHING TREATMENTS. PT CONTINUES TO TRY AND PULL O2 OFF OF FACE. BED ALARM ON, PT WAS INCONTINENT OF URINE AND BED ALARM WENT OFF. RN RESPONDED TO BED ALARM AND PT HAD ONE LEG OVER RAIL AND WAS PULLING HER GOWN OFF AND HAD HER O2 OFF. PT HAD BEEN INCONTINENT OF BLADDER AT THAT TIME. PAD CHANGED UNDER PATIENT AND PT CLEANED IN STIVEN AREA. BARRIER CREAM APPLIED, NEW GOWN APPLIED, O2 PLACED BACK ON PT. DR OLMOS ROUNDED ON PT. NEW ORDERS PLACED FOR IV, ANTIBIOTICS AND FLUIDS. WANTS PT NPO UNTIL SPEECH CAN DO FULL SWALLOW EVAL TOMORROW. AT 1910 PT HAS TEMP OF 100.2. DR OLMOS HERE AND NOTIFIED AND IS AWARE. PT NOT ANSWERING ADMISSION ASSESSMENT QUESTIONS. PT UNABLE TO SIGN CONSENTS AT THIS TIME. REPORT GIVEN TO NIGHT EMELYN SALAMANCA.
--- NOTE | 2020-09-01 20:30 | NUR ---
CONSULTS CALLED INTO DR. LANDA, MESSAGE LEFT ON VOICE MAIL, DR. GUADARRAMA, MESSAGE LEFT ON ANSWERING MACHINE AND TO HOSPITALIST- RN SPOKE TO DR. OLMOS WHO ROUNDED AND SAW PT.
--- NOTE | 2020-09-01 20:46 | NUR ---
PT ALERT TO SELF. NOT RESPONDING MUCH. SHE IS RESTLESS. FALL RISK, OBSERVED TRYING TO GET OUT OF BED. IV PLACED IN LFA, PROTECTIVE WRAP APPLIED, PT ALREADY OBSERVED FIDGETTING WITH IV.PT PLACED ON /, PT KEEPS TAKING IT OFF.FALL PREC IN PLACE. PT IS NPO FOR ASPIRATION RISK. IVF STARTED WELL IV ABTS.PT HAS SOME MILD WHEEZING. SHE DOES NOT APPEAR TO BE IN DISTRESS AT THIS TIME. WILL CONTINUE WITH POC.
[2020-09-02 04:24] VITALS: BP 127/48
[2020-09-02 05:16] LABS: HEMATOCRIT 34.5 % (37.0-47.0); HEMOGLOBIN 11.4 gm/dL (12.0-15.0); MCH 31.5 pg (26.0-34.0); MCHC 33.1 g/dL (28.0-37.0); RBC 3.64 mil/uL (4.20-5.00); RDW 13.3 % (10.5-14.5); WBC 2.8 thou/uL (4.0-11.0)
[2020-09-02 05:32] LABS: CALCIUM 8.4 mg/dL (8.5-10.1); POTASSIUM 3.9 mmol/L (3.5-5.1)
[2020-09-02 06:00] LABS: FOLIC ACID 25.9 ng/mL (8.6-58.9)
[2020-09-02 08:00] VITALS: BP 134/56
--- NOTE | 2020-09-02 14:22 | NUR ---
PT ALERT AND ORIENTED TIMES THREE WITH SOME CONFUSION. VSS, IVF INFUSING PER ORDER. PT DENIES PAIN/SOA. PT TOLERATES MEDS AND MEALS. PT WORKED WELL WITH PT/OT TODAY. WILL CONTINUE TO MONITOR.
--- NOTE | 2020-09-02 14:33 | NUR ---
Nutrition: Consult for malnutrition. S/p fall w/ closed head injury and rib fx. Pt was NPO for breakfast until PENSION EXAMINER able to eval. Ordered [facility] alt, ground diet with NTL. Intake 75% of lunch. BMP reviewed. Meds: solumedrol, HCTZ, statin. Per records wt's in 2018 and 2019 were in 150's lb range; would appear stable. Assess at low-mild nutrition risk r/t dysphagia. RD f/u on further needs when more intake records available, on or before 09/07.
[2020-09-02 20:00] VITALS: BP 131/51
--- NOTE | 2020-09-03 03:49 | NUR ---
assumed care approx 1900 evening 09/02. pt sitting up in recliner at change of shift and assisted onto bsc and into gown at hs. pt pleasantly confused tonight calling out frequently for small requests. pt took hs meds with applesauce tolerating well. pt appears to be sleeping soundly at present. bed alarm on and call light in reach. will continue to monitor.
[2020-09-03 08:00] VITALS: BP 132/58
--- NOTE | 2020-09-03 17:02 | NUR ---
RECEIVED PT'S CARE AROUND 714; PT. ON BED RESTING WITH EYES CLOSED; EQUAL CHEST RISING NOTICED; DURING AM ASSESSMENT PT. AOX4; FORGETFUL AT TIMES; AM MEDICATIONS GIVEN WITH APPLE SAUCE; C/O TENDERNESS OVER R. FLANK; SCHEDULED MEDICATION APPLIED; EDUCATED ABOUT CALLING BEFORE GETTING UP FROM THE CHAIR; ST. UNDERSTANDING; DURING DR. TIFF ESPINOZA PT. COUGHING WHILE TAKING SIPS OF ORANJE JUICE; SPEECH THERAPY NOTIFIED; CLARE AT THE BED SIDE; RECEIVED A CALL FROM DAUGHTER REQUESTING TO PROVIDE PULL UPS FOR PT.; DAUGHTER NOTIFIED FLOOR PROVIDED PULL UPS; ST. PT. NOTIFIED RE ETCHER DID NOT PROVIDE PULL UPS; DAUGHTER NOTIFIED PT. HAD PULL UP DURING THE MORNING; PER REPORT PT. HAD PULL UP ON PLACED; ASSESSMENT CHARGED; FOLLOWING POC; WILL PASS ON REPORT
[2020-09-03 20:20] VITALS: BP 126/46
--- NOTE | 2020-09-04 02:32 | NUR ---
ASSUMED CARE APPROX 1900 EVENING 09/03. PT SITTING UP IN RECLINER AT CHANGE OF SHIFT. PT APPROPRIATE AND COOPERATIVE, SOMEWHAT FORGETFUL. PT TOOK HS MEDS WITH APPLESAUCE TOLERATING WELL. PT APPEARS TO BE SLEEPING SOUNDLY. BED ALARM ON AND CALL LIGHT IN REACH. WILL CONTINUE TO MONITOR.
[2020-09-04 07:15] VITALS: BP 142/47
--- NOTE | 2020-09-04 10:01 | NUR ---
ASSUMED CARE OF PT AT 0700. PT IS A&OX3. IS FORGETFUL & CAN BE IMPULSIVE AT TIMES. IS STABLE. IS ON ROOM AIR. REPORTS PAIN ON RIGHT SIDE THAT IS BEING MANAGED WITH TOPICAL MEDICATION & OTHER THERAPUETIC TECHNIQUES. PT IS UP WITH 1 ASSIST, GB, WALKER. FALL PRECAUTIONS & HOURLY ROUNDING CONTINUED THIS SHIFT. MORNING ADL'S COMPLETED. LABS & VITALS REVIEWED. PT IS CURRENTLY UP IN WATCHING TV. PT WAS OBSERVED WORKING WITH PHYSICAL THERAPY. AMBULATING IN THE HALLWAY. CALL LIGHT WITHIN REACH. WILL CONTINUE TO MONITOR.
[2020-09-04 19:07] VITALS: BP 135/56
--- NOTE | 2020-09-05 02:48 | NUR ---
PT TRANSFERRING FROM BED TO WHEELCHAIR AND IS TOLERATING WELL. LIDOCAINE PATCH PROVIDING PAIN RELIEF. RESTING COMFORTABLY. NO NEEDS VOICED. CALL LIGHT WITHIN REACH. FREQUENT OBSERVATION.
[2020-09-05 08:00] VITALS: BP 152/64
--- NOTE | 2020-09-05 17:54 | NUR ---
PT ALERT AND ORIENTED TIMES FOUR. VSS. PT DENIES PAIN/SOA. PT TOLERATES MEDS AND MEALS. PT WORKED WELL WITH PT AND OT. PT PROGRESSING TOWRADS POC GOALS.
[2020-09-05 19:22] VITALS: BP 141/50
--- NOTE | 2020-09-06 00:40 | NUR ---
PT WAS OBSERVED SITTING UP IN THE RECLINER WATCHING TV AT SHIFT CHANGE.PT WAS LATER HELPED CHANGE INTO HER PYJAMAS.UP WITH MOD ASSIST/GB AND WALKER,GOOD ENDURANCE NOTED.PT'S DTR CALLED AND TALKED WITH HER BEFORE SHE RETIRED TO HER BED FOR THE NIGHT.PT DENIED PAIN/N/V.PT DEMETRICE MED WITH APPLESAUCE.PT ABLE TO MAKE HER NEEDS KNOWN.CALL LIGHT WITHIN REACH.
[2020-09-06 08:00] VITALS: BP 145/57
--- NOTE | 2020-09-06 12:31 | NUR ---
PT ALERT AND ORIENTED TIMES FOUR, VSS. PT DENIES PAIN/SOA. PT TOLERATES MEDS AND MEALS. PT WORKED WELL WITH PT/OT. PT PROGRESSING TOWRADS POC GOALS.
--- NOTE | 2020-09-06 13:00 | NUR ---
team meeting, reccommendation: ([facility]), dc with [facility] ( pt, ot, st with vital stim, nurse)
[2020-09-06 16:22] VITALS: BP 146/67
--- NOTE | 2020-09-06 18:18 | NUR ---
ASSUMED CARE AT 1415, AND PT TOLERATED THERAPIES WELL WITHOUT EVENT. PT UP TO BR THIS AFTERNOON, AND C/O RT RIB PAIN, REQUESTING THAT THE LIDOCAINE PATCH BE APPLIED AGAIN IT HAD BEEN REMOVED EARLIER FOR BATHING. THIS WAS RE-APPLIED AND PT REPORTED PAIN RELIEF. DAUGHTER AT BEDSIDE CURRENTLY.
[2020-09-06 19:25] VITALS: BP 141/62
--- NOTE | 2020-09-06 20:55 | NUR ---
ASSUMED CARE OF PT AT 1915. PT IS A&OX4 WITH SOME FORGETFULLNESS AT TIMES. DENIES PAIN. IS STABLE. IS ON ROOM AIR. IS UP WITH 1 ASSIST, GB, WALKER TO BATHROOM. FALL PRECAUTIONS & HOURLY ROUNDING CONTINUED THIS SHIFT. IS ON Q2H TURNS. LABS & VITALS REVIEWED. PT IS CURRENTLY IN BED, WATCHING TV. CALL LIGHT WITHIN REACH. WILL CONTINUE TO MONITOR. BED ALARM ON.
[2020-09-07 05:53] LABS: ABSOLUTE NEUTROPHILS 4.8 thou/uL (1.4-8.2); BASOPHILS 0.2 % (0.0-2.0); EOSINOPHILS 1.7 % (0.0-3.0); HEMATOCRIT 34.3 % (37.0-47.0); HEMOGLOBIN 11.4 gm/dL (12.0-15.0); LYMPHOCYTES 29.4 % (24.0-44.0); MCH 31.7 pg (26.0-34.0); MCHC 33.2 g/dL (28.0-37.0); MCV 95.4 fL (80.0-100.0); MONOCYTES 8.9 % (1.0-8.0); PLATELET COUNT 156 thou/uL (150-400); POLYS 59.8 % (36.0-66.0); RDW 13.8 % (10.5-14.5)
[2020-09-07 06:17] LABS: CALCIUM 8.5 mg/dL (8.5-10.1); CREATININE 1.1 mg/dL (0.6-1.0); MAGNESIUM 2.1 mg/dL (1.8-2.4); POTASSIUM 3.7 mmol/L (3.5-5.1)
[2020-09-07 09:00] VITALS: BP 113/45
--- NOTE | 2020-09-07 13:09 | NUR ---
PATIENT IS LAERT, AND ORIENTED X 3-4 ABLE TO VOICE NEED, CAN BE FORGETFUL AT TIMES. PATIENT IS CALM, COOPERATIVE WITH CARE, SHE IS EATING MEALS, AND DRINKING THICKEN LIQUID VERY WELL. PATIENT TOLERATED MEDICATION WELL IN APPLE SOURCE. PATIENT TOLERATING IV ANTIBIOTIC WELL, NO S&S OF ADVERSE EFFECT NOTED, NO SIGN OF REDNESS OR INFILTRATION NOTED TO IV SITE . PATIENT DENIES HAVING PHYSICAL PAIN. FALL PRECAUTIONS IN PLACE, CALL LIGHT IN REACH, NO SIGN OF ACUTE DISTRESS NOTED AT THIS TIME, WILL CONTINUE TO MONITOR.
--- NOTE | 2020-09-07 15:33 | NUR ---
FAXED RESUMPTION OF CARE REFERRAL TO [facility] SPOKE WITH KAYLIN IN INTAKE SHE RECEIVED REFERRAL AND WILL RESUME HH AT DISCHARGE.
[2020-09-07 20:00] VITALS: BP 126/54
[2020-09-08 08:00] VITALS: BP 136/42
--- NOTE | 2020-09-08 10:26 | NUR ---
Followup: remains on rehab unit s/p fall, closed head injury. ST working daily with pt. Pt remains on [facility] altered chopped diet, thickened liquids. Intake has been variable past several days from 10-100% of meals. Start magic cups/ensure pudding bid. No new wt to assess for changes. Low nutrition risk
--- NOTE | 2020-09-08 17:26 | NUR ---
CONT ON PT/OT/ST AND HAS NOT VOICED ANY COMPLAIN OF PAIN OR DISTRESS. PLEASANT WITH CARES. WILL CONT WITH PLAN OF CARE.
[2020-09-08 20:00] VITALS: BP 142/52
--- NOTE | 2020-09-09 06:07 | NUR ---
ASSESSMENT: PT REMAIN ALERT AND ORIENT TIMES THREE. UP TO TOILET WITH GB AND ONE ASSISTANCE. VSS, AFEBRILE. LEFT FORE ARM IV INTACT. TAKES MEDS WHOLE IN APPLE SAUCE.
[2020-09-09 07:15] VITALS: BP 141/55
--- NOTE | 2020-09-09 15:24 | NUR ---
Assumed pt care this am, VS stable. Diet and medication tolereated well. Alert and oriented x 3. TAkes mediucations whole with aple sauce. Maintained on nectar thick fluids. Has been working with PT and OT with no issues. POC followed with no signs or verbalizations of distress noted.
[2020-09-09 19:55] VITALS: BP 109/46
--- NOTE | 2020-09-10 04:10 | NUR ---
assumed care approx 1900 evening 09/09. pt sitting up in recliner at change of shift watching tv. pt awake and somewhat forgetful yet cooperative and appropriate. pt took hs meds with applesauce tolerating well. pt appears to be sleeping soundly. bed alarm on and call light in reach. will continue to monitor.
[2020-09-10 08:00] VITALS: BP 124/69
--- NOTE | 2020-09-10 13:05 | HC ---
[facility] [place] [address] CONSULTATION Name: RG FITZGERALD Room #: 505-P ADM IN M.R.#: [id number] Admission: 09/01/20 Attend Phys: Yobani Zambrano MD Discharge: Date of : 36 Report #: [id number] THIS REPORT FOR: cc: Floyd Rios MD, Shyam MD Deutch,Rajan Gong. PhD ~ DATE OF SERVICE: 09/04/2020 NEUROBEHAVIORAL STATUS EXAMINATION ATTENDING PHYSICIAN: Yobani Zambrano MD ROUND UP RING HAND: Rajan Sykes, PhD CLINICAL PRESENTATION: The patient is an 80-year-old female admitted to [facility] for a comprehensive inpatient rehabilitation program. She carries an assessment on admission to the rehabilitation unit of fall with closed head injury, medical complexity with generalized debility, UTI, dysphagia, right 8th rib fracture status post fall, history of spinal stenosis, lumbar radiculopathy status post decompression, history of COVID-19 with a very prolonged recovery since 05/2020, tobacco abuse, hypertension and dementia. A complete description of her medical condition and history along with medications can be found in her medical record. Neuropsychological consultation was requested to provide assistance in the assessment of cognitive and emotional status and provide recommendations and services. The patient accurately described events surrounding her admission. She indicates that she was living at home with her daughter and the daughter's systems mechanic. She reports having developed COVID and having a prolonged recovery. Her fall occurred upon tripping on a rug, falling forward and striking her head. 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 She was employed for 25 years prior to long term and is a high school graduate. TECHNIQUES UTILIZED: Clinical interview, review of medical records, staff consultation and behavioral observation, mini mental status exam 2 standard version, clock drawing. EXAMINATION FINDINGS: The patient was alert and cooperative with the assessment. She accurately described having fallen and requiring treatment. She describes her symptoms to include anxiety, depression, difficulty with memory and word finding and reduced appetite. She was a heavy drinker up until a few years ago. Driving was reported as having been discontinued several years [facility] [address] [place] [address] CONSULTATION Name: RG FITZGERALD Room #: 505-P [facility].#: [id number] Admission: 09/01/20 Attend Phys: Yobani Zambrano MD Discharge: Date of : 36 Report #: [id number]. The patient reported that she needed help with bathing, managing medication and bills prior to this hospitalization. The patient was distractible and tangential during the interview and assessment. Performance on the MMSE 2 brief version is extremely low with a raw score of 12/16, which is the borderline range with a T score of 30 and percentile rank of 2. She was 4/5 for orientation to time and 4/[address]. She was 3/3 for initial registration. The orientation board in her room was used to assist with orientation questions. Performance improved on the MMSE 2 standard version to a raw score of 24/30, which is a T score of 40 and percentile rank of 16. She was 5/5 for serial sevens, 2/2 for naming, 1/1 for repetition, 3/3 for comprehension. She could read and follow single command. The patient was unable to write a sentence or copy a simple geometric design. Clock drawing was of poor quality, but accurate for hand placement. She states that she could not write a sentence. DIAGNOSTIC IMPRESSION: Major neurocognitive disorder (dementia), likely due to medical etiology and with current complications from a mild traumatic brain injury (concussion) -- extent to be determined, likely in the moderate range. 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 RECOMMENDATIONS: Continued structure and supervision will be necessary to maintain safety. Consider use of an antidepressant with anxiolytic features. Her family should be informed of the extent of assistance that she needs in order to provide adequate supervision following discharge. Alcohol use should be discontinued. Thank you very much for allowing me to provide the consultation on this patient. <ELECTRONICALLY SIGNED> By: Rajan Sykes, PhD 09/10/20 1305 [id number] Rajan Sykes, PhD /nt
--- NOTE | 2020-09-10 17:44 | NUR ---
PATIENT HAS BEEN QUITE PLEASANT. SHE RESTED IN CHAIR MOST OF THE DAY. AMBULATES TO BATHROOM WITH MINIMAL ASSIST. WILL CONT WITH PLAN OF CARE.
[2020-09-10 21:18] VITALS: BP 120/56
--- NOTE | 2020-09-11 00:48 | NUR ---
assumed care approx 1900 evening 09/10. pt sitting up in recliner at change of shift alert and oriented x4, somewhat forgetful. pt took hs meds with applesauce tolerating well. pt appears to be sleeping soundly. bed alarm on and call light in reach. will continue to monitor.
[2020-09-11 07:15] VITALS: BP 125/45
--- NOTE | 2020-09-11 11:33 | NUR ---
ASSUMED CARE AT 0700 THIS MORNING. PT. PLEASANT AND COOPERATIVE. SHE IS A&OX3 BUT IS FORGETFUL AT TIMES. SHE HAS A NS LOCK TO LEFT WRIST. SHE IS ON ROOM AIR. SHE TOOK HER MEDICATIONS WHOLE WITH APPLESAUCE. NO NEW PROBLEMS NOTED OR VOICED. WILL CONTINUE TO MONITOR.
[2020-09-11 20:00] VITALS: BP 127/58
--- NOTE | 2020-09-12 02:13 | NUR ---
UP TO TOILET WITH GAIT BELT, WALKER, AND CONTACT GUARD ASSIST WITH VERBAL REMINDERS TO NOT CROSS LEGS WHEN WALKING. BM AND VOID WHEN ON TOILET. HAS SIGNIFICANT STRESS INCONTINENCE, WEARS AND CHANGES PAD INSIDE HER BRIEF. CAREFUL TO SIT UP AND WRAP APPLESAUCE AROUND EACH PILL AND DRINK NECTAR THICK LIQUIDS, PREFERS TEA.
[2020-09-12 08:00] VITALS: BP 127/62
--- NOTE | 2020-09-12 09:59 | NUR ---
Received awake on bed. Due medications given as prescribed, able to swallow one by one, whole with apple sauce; no difficulty noted. On MS, not on telemetry; no complains and signs of chest pain, crushing sensation and heaviness. Assisted in ADLs. Vital signs stable. On room air. Tolerating diet well; no nausea, no vomiting and no abdominal pain noted- encouraged and assisted in eating and drinking. With stress incontinence; checked regularly and assisted in changing as needed. With SL at L wrist. Able to sit out on the chair; Falls bundle in place. Lidocaine patch applied to R rib as ordered. Swallowing protocol observed- pt seen and examined by ST at bedside today. To continue monitoring patient.
[2020-09-12 19:40] VITALS: BP 107/29
[2020-09-12 20:00] VITALS: BP 116/54
--- NOTE | 2020-09-13 02:24 | NUR ---
HS MEDS GIVEN WHILE PATIENT STILL SITTING UP IN CHAIR, TAKES CARE TO WRAP MEDS IN APPLESAUCE. NECTAR THICK LIQUIDS, TEA PREFERRED. CONTACT GUARD ASSIST WITH GAIT BELT AND WALKER, USING PAD IN BRIEF FOR STRESS INCONTINENCE.
[2020-09-13 07:15] VITALS: BP 121/54
--- NOTE | 2020-09-13 11:28 | NUR ---
Received awake on bed. Due medications given as prescribed, able to swallow meds w/o difficulty- given with apple sauce. On room air. Vital signs stable. On MS, not on telemetry; no complains and signs of chest pain, crushing sensation and heaviness. Assisted in ADLs. On mechanically altered ground diet- assisted in eating and drinking; no nausea, no vomiting and no abdominal pain noted. Went down at 8am for video swallow via wheelchair; back to room safely. Usually continent, may have episodes of stress incontinence; otherwise, able to go to the toilet using walker, gait belt and standby assist. Falls bundle in place. With SL at L hand- discontinued. With nicotine patch and lidocaine patch as ordered. To continue monitoring patient.
--- NOTE | 2020-09-13 13:09 | NUR ---
team meeting, recommendation: thicken liquid speech to education with family. [facility] ( pt, ot, st with vital stim, and nursing). no dme dc on .
[2020-09-13 19:18] VITALS: BP 118/42
--- NOTE | 2020-09-14 03:41 | NUR ---
UP WITH ASSIST WITH WALKER TO THE BATHROOM.NO COMPLAIN OF PAIN.DENIES NEEDS AT THIS TIME.POC CONTINUED.
[2020-09-14 05:59] LABS: ABSOLUTE NEUTROPHILS 5.5 thou/uL (1.4-8.2); BASOPHILS 0.4 % (0.0-2.0); EOSINOPHILS 1.5 % (0.0-3.0); HEMATOCRIT 34.6 % (37.0-47.0); HEMOGLOBIN 11.5 gm/dL (12.0-15.0); LYMPHOCYTES 29.6 % (24.0-44.0); MCH 31.7 pg (26.0-34.0); MCHC 33.2 g/dL (28.0-37.0); MCV 95.4 fL (80.0-100.0); PLATELET COUNT 133 thou/uL (150-400); POLYS 59.5 % (36.0-66.0); RBC 3.63 mil/uL (4.20-5.00); RDW 14.2 % (10.5-14.5); WBC 9.2 thou/uL (4.0-11.0)
[2020-09-14 06:31] LABS: CALCIUM 8.3 mg/dL (8.5-10.1); CREATININE 1.2 mg/dL (0.6-1.0); POTASSIUM 3.9 mmol/L (3.5-5.1)
[2020-09-14 07:15] VITALS: BP 101/50
[2020-09-14 08:04] VITALS: BP 118/42
--- NOTE | 2020-09-14 09:37 | NUR ---
PT SITTING IN CHAIR. PT LUNGS CLEAR, NO COUGH NOTED AT THIS TIME. PT TOOK MEDS WITH APPLESAUCE WHOLE. PT STATED LIDOCAINE PATCH TO RT SIDE FROM FALL. PT IS COMPLIENT FOR NECTOR THICK LIQUIDS. PT TOLERATEDS THICKEN LIQUIDS. PT GETS UP TO BATHROOM WITH WALKER AND WEARS BRIEF AND A PAD.
[2020-09-14] MEDS ORDERED: VENTOLIN HFA 1818 GM INH (09:59)
[2020-09-14] MEDS ORDERED: HYDROCHLOROTHIA25 M1 PO (10:01)
[2020-09-14 11:25] VITALS: BP 118/42
[2020-09-14] MEDS ORDERED: LIDODERM1 EACH TRANSDERM (13:46)
--- NOTE | 2020-09-14 14:41 | NUR ---
PT LEFT VIA W/C TO CAR. PT ACCOMPANIED BY DAUGHTER AND GRANDSON. PT DID WHEEL SELF FROM HER ROOM TO NEXT ROOM. GRANDSON WAS SAYING THAT SHE COULDN'T WHEEL SELF TO ELEVATOR WOULD BE TOO FAR. PT ASSISTED TO CAR AND WAS ABLE TO STAND ON OWN AND SIT IN CAR AND SWING LE OVER. PUT SEAT BELT ON PT. PT DAUGHTER WAS TAUGHT BY SP ABOUT THICKENER POWDER AND HOW TO PURCHASE MORE. SAID, WINDOWS SERVER SUPPORT TECHNICIAN WENT OVER D/C MEDS.
--- NOTE | 2020-09-14 16:11 | NUR ---
PT DISCHARGING TODAY TO HOME WITH RESUMPTION OF CARE FOR HH. PT IS ON SERVICE WITH [facility] PRIOR TO ADM. FAXED DC ORDERS/SUMMARY TO [facility] SPOKE WITH LAVON IN ADM SHE RECEIVED ORDERS AND WILL ARRANGE VISITS WITH PT.
== END 2020-09-14 14:52 | disposition home health service (06) | DRG 913 ==
PROVIDERS: Hospitalist; Nurse Practitioner; Nurse Practitioner Family; ADMIT Physical Medicine & Rehabilitation; ATTEND Physical Medicine & Rehabilitation
DX: S09.90XA Unspecified injury of head, initial encounter (principal); J96.01 Acute respiratory failure with hypoxia; S22.31XA Fracture of one rib, right side, initial encounter for closed fracture; N39.0 Urinary tract infection, site not specified; J98.11 Atelectasis; N17.9 Acute kidney failure, unspecified; R53.81 Other malaise; R13.10 Dysphagia, unspecified; D69.6 Thrombocytopenia, unspecified; I12.9 Hypertensive chronic kidney disease with stage 1 through stage 4 chronic kidney disease, or unspecified chronic kidney disease; F41.8 Other specified anxiety disorders; F01.50 Vascular dementia, unspecified severity, without behavioral disturbance, psychotic disturbance, mood disturbance, and anxiety; W18.39XA Other fall on same level, initial encounter; R29.6 Repeated falls; E78.5 Hyperlipidemia, unspecified; N18.2 Chronic kidney disease, stage 2 (mild); F17.210 Nicotine dependence, cigarettes, uncomplicated; E78.00 Pure hypercholesterolemia, unspecified; Z88.1 Allergy status to other antibiotic agents; Z86.16 Personal history of COVID-19; Y93.89 Activity, other specified; Y92.89 Other specified places as the place of occurrence of the external cause; Y99.8 Other external cause status; Z88.2 Allergy status to sulfonamides; Z88.8 Allergy status to other drugs, medicaments and biological substances
CPT/HCPCS: 10112

== ENCOUNTER → 2021-02-15 | Outpatient (CLI) | payer OTHER ==
[~2021-02-15] MED LIST changes: +CARVEDILOL12.5 MG PO; +CLARITIN10 M3 PO; +DULCOLAX STOOL100 M1 PO; +GLYCOLAX119 GM PO; +LIDODERM1 EACH TRANSDERM; +NORCO5 PO; +PRESERVISION A1 EAC2 PO; +REQUIP 0.25 M0.25 M1 PO; +SERTRALINE HCL100 MG PO; +THERAGRAN-M PR1 EAC1 PO; +VENTOLIN HFA 1818 GM INH
== END ==
LOC: SJCVCIMAG 07:29
PROVIDERS: ATTEND Internal Medicine Cardiovascular Disease
DX: R94.31 Abnormal electrocardiogram [ECG] [EKG] (principal); R00.1 Bradycardia, unspecified; I10 Essential (primary) hypertension; E78.00 Pure hypercholesterolemia, unspecified; R60.9 Edema, unspecified; Z72.0 Tobacco use; Z88.2 Allergy status to sulfonamides; Z88.8 Allergy status to other drugs, medicaments and biological substances; Z79.899 Other long term (current) drug therapy; Z87.891 Personal history of nicotine dependence

== ENCOUNTER 2021-03-28 21:53 | Emergency (ER) | payer OTHER ==
[~2021-03-28] VITALS: Ht 160 cm; Wt 64.9 kg
[2021-03-28] MEDS ORDERED: PROTONIX 20 MG20 MG PO (22:04)
[2021-03-28 23:13] VITALS: BP 128/44
== END 2021-03-28 23:00 | disposition home or self-care (01) ==
LOC: ER 21:53
DX: S01.01XA Laceration without foreign body of scalp, initial encounter (principal); S09.90XA Unspecified injury of head, initial encounter; E78.00 Pure hypercholesterolemia, unspecified; I10 Essential (primary) hypertension; Z88.2 Allergy status to sulfonamides; Z79.899 Other long term (current) drug therapy; Z88.6 Allergy status to analgesic agent; W01.0XXA Fall on same level from slipping, tripping and stumbling without subsequent striking against object, initial encounter; Y93.89 Activity, other specified; Y92.89 Other specified places as the place of occurrence of the external cause; Y99.8 Other external cause status

== ENCOUNTER 2021-04-04 13:52 | Emergency (ER) | payer OTHER ==
[~2021-04-04] VITALS: Ht 160 cm; Wt 67.6 kg
[~2021-04-04 13:52] MED LIST changes: +PROTONIX 20 MG20 MG PO
[2021-04-04 13:53] VITALS: BP 114/35
== END 2021-04-04 14:37 | disposition home or self-care (01) ==
LOC: ER 13:52
DX: S01.01XD Laceration without foreign body of scalp, subsequent encounter (principal); E78.00 Pure hypercholesterolemia, unspecified; I10 Essential (primary) hypertension; F17.210 Nicotine dependence, cigarettes, uncomplicated; Z98.890 Other specified postprocedural states; Z79.51 Long term (current) use of inhaled steroids; Z79.891 Long term (current) use of opiate analgesic; Z79.899 Other long term (current) drug therapy; Z88.6 Allergy status to analgesic agent; Z88.1 Allergy status to other antibiotic agents; Z88.2 Allergy status to sulfonamides; X58.XXXD Exposure to other specified factors, subsequent encounter

== ENCOUNTER 2021-06-21 14:22 | Emergency (ER) | payer OTHER ==
[~2021-06-21] VITALS: Ht 160 cm; Wt 67.1 kg
[2021-06-21 16:36] LABS: URINE BILIRUBIN NEGATIVE (Negative); URINE BLOOD TRACE (Negative); URINE CLARITY CLOUDY; URINE COLOR YELLOW; URINE GLUCOSE-RANDOM* NEGATIVE (Negative); URINE KETONES NEGATIVE (Negative); URINE PROTEIN (DIPSTICK) NEGATIVE (Negative); URINE SPECIFIC GRAVITY >= 1.030 (1.005-1.035)
[2021-06-21 16:40] LABS: ABSOLUTE NEUTROPHILS 6.4 thou/uL (1.4-8.2); BASOPHILS 0.4 % (0.0-2.0); EOSINOPHILS 1.2 % (0.0-3.0); HEMATOCRIT 36.3 % (37.0-47.0); HEMOGLOBIN 11.7 gm/dL (12.0-15.0); MCH 31.3 pg (26.0-34.0); MCHC 32.2 g/dL (28.0-37.0); MCV 97.2 fL (80.0-100.0); MONOCYTES 9.9 % (1.0-8.0); PLATELET COUNT 150 thou/uL (150-400); POLYS 71.5 % (36.0-66.0); RBC 3.74 mil/uL (4.20-5.00); RDW 13.1 % (10.5-14.5); WBC 8.9 thou/uL (4.0-11.0)
[2021-06-21 16:46] LABS: URINE LEUKOCYTES-REFLEX 2+ (Negative); URINE NITRITE-REFLEX POSITIVE (Negative)
[2021-06-21 16:55] LABS: CALCIUM 9.3 mg/dL (8.5-10.1); CREATININE 1.3 mg/dL (0.6-1.0); POTASSIUM 3.9 mmol/L (3.5-5.1)
[2021-06-21 17:10] LABS: SQUAMOUS 4-10 Moderate /LPF (0-3)
[2021-06-21 17:11] LABS: BACTERIA-REFLEX >30 Many /HPF (None Seen); CASTS None Seen /LPF (None Seen); CRYSTALS None Seen /LPF (None Seen); URINE RBC 3-10 Few /HPF (NONE SEEN); URINE WBC-REFLEX >25 Many /HPF (0-5)
[2021-06-21 17:12] LABS: ALBUMIN 3.2 g/dL (3.4-5.0); TOTAL BILIRUBIN 0.9 mg/dL (0.2-1.0); TOTAL PROTEIN 7.3 g/dL (6.4-8.2)
[2021-06-21] MEDS ORDERED: CEPHALEXIN500 MG PO (17:33)
[2021-06-21 17:53] VITALS: BP 112/50
--- NOTE | 2021-06-22 08:07 | EKG ---
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
== END 2021-06-21 17:55 | disposition home or self-care (01) ==
LOC: ER 14:22
PROVIDERS: Physician Assistant
DX: D64.9 Anemia, unspecified (principal); Z20.822 Contact with and (suspected) exposure to COVID-19; R41.82 Altered mental status, unspecified; N39.0 Urinary tract infection, site not specified; E86.0 Dehydration; E78.00 Pure hypercholesterolemia, unspecified; I10 Essential (primary) hypertension; F17.210 Nicotine dependence, cigarettes, uncomplicated; Z79.899 Other long term (current) drug therapy; Z88.2 Allergy status to sulfonamides; Z88.1 Allergy status to other antibiotic agents